=== PATIENT | female | born 1960 | race Caucasian/White ===

== ENCOUNTER → 2016-10-30 | Outpatient (CLI) | payer OTHER ==
[~2016-10-30] MED LIST: BUPR-79 PO; CYCL0.052 OPB; GABA1CAP5 PO; OMEP20CA9 PO; VENL75CA73 PO
[2016-10-30 11:56] LABS: BASO % 0.3 %; BASO ABS # 0.02 K/uL (0-0.2); COMPLETE YES; EOS % 0.1 %; HEMATOCRIT 43.6 % (37-47); IG% 0.3 %; LYMPH % 24.1 %; LYMPH ABS # 1.78 K/uL (1.2-3.4); MEAN CELL VOLUME 92.4 fL (80-100); MEAN CORPUSCULAR HEMOGLOBIN 30.9 pg (25-34); MEAN CORPUSCULAR HGB CONC 33.5 g/dl (32-36); MONO % 6.4 %; NEUT % 68.8 %; PLATELET COUNT 235 K/uL (130-400); RED BLOOD COUNT 4.72 M/uL (4.2-5.4); WHITE BLOOD COUNT 7.38 K/uL (4.8-10.8)
[2016-10-30 12:07] LABS: PARTIAL THROMBOPLASTIN RATIO 1.1; PROTHROMBIN TIME (PATIENT) 10.6 SECONDS (9.0-12.0)
[2016-10-30 12:20] LABS: POTASSIUM 4.1 mmol/L (3.5-5.1)
== END | disposition home or self-care (01) ==
LOC: C.LAB 11:31
DX: Z01.818 Encounter for other preprocedural examination (principal)

== ENCOUNTER → 2016-11-05 | Day surgery (SDC) | payer OTHER ==
[2016-10-29 14:13] VITALS: Ht 175.3 cm; Wt 95.5 kg
[~2016-11-05] VITALS: Ht 175.3 cm; Wt 95.5 kg
[~2016-11-05] MED LIST changes: +ATROPINE SULFATE 0.1 MG/ML 5ML SYR IV PRN; +CEFAZOLIN 2000 MG/60 ML D5W IV SCH; +DEXAMETHASONE SOD INJ 4 MG/ML VIAL ONE; +EpHEDrine SULFATE INJ 50 MG/ML AMP IV PRN; +EpINEphrine INJ 1MG/ML AMP 1 MG/ML AMP ONE; +FENTANYL CITRATE INJ 50 MCG/1 ML 2 ML VIAL IV PRN; +FENTANYL CITRATE INJ 50 MCG/1 ML 2 ML VIAL ONE; +GLYCOPYRROLATE INJ 0.2 MG/ML VIAL ONE; +HYDROCODONE/ACETAMOPHEN 5/325MG TAB PO PRN; +LABETALOL HCL IV 5 MG/ML 20ML IV PRN; +LABETALOL HCL IV 5 MG/ML 20ML ONE; +LACTATED RINGER'S 1000ML 1,000 ML IV SCH; +LIDOCAINE 4% MPF SOAK 5 ML = 1 DOSE TOP ONE; +LIDOCAINE HCL 2% 2 ML VIAL (20MG/ML) ONE; +LIDOCAINE/EPINEPHRINE 1% INJ 50 ML VIAL ONE; +MIDAZOLAM HCL 1 MG/ML 2ML VIAL ONE; +NEOSTIGMINE METHYLSULFATE 5 MG/5 ML SYR ONE; +ONDANSETRON INJ 2 MG/ML 2 ML VIAL IV PRN; +ONDANSETRON INJ 2 MG/ML 2 ML VIAL ONE; +OXYMETAZOLINE HCL 0.05% NA SPR 15 ML BTL PRN; +OXYMETAZOLINE HCL 0.05% NA SPR 15 ML BTL SCH; +PROPOFOL IV EMULSION 10 MG/ML 20 ML VIAL IV ONE
--- NOTE | 2016-11-05 11:35 | History & Physical Bridge - [place] ---
H&P Re-Evaluation Bridge Note: I have examined the patient, reviewed the History & Physical and in the interval since the performance of the History & Physical I have noted the following changes of clinical significance: No changes noted
--- NOTE | 2016-11-05 12:27 | [facility] Operative Report ---
Operative Report Operative Date Nov 05, 2016. Pre-Operative Diagnosis CHRONIC SINUSITIS Post-Operative Diagnosis SAME AND RIGHT NASAL ADHESIONS Procedure(s) Performed RIGHT MAXILLARY ANTROSTOMY, RIGHT ANTERIOR ETHMOIDECTOMY, RIGHT NASAL LYSIS OF ADHESIONS Surgeon VICKIE Estimated Blood Loss 5ML Findings 1. ADHESION BETWEEN RIGHT MIDDLE TURBINATE AND LATERAL NASAL WALL 2. PURULENCE WITHIN RIGHT MAXILLARY SINUS 3. MILD POLYPOID THICKENING RIGHT MAXILLARY SINUS AND ANTERIOR ETHMOID SINUS Specimens NONE I attest to the content of the Intraoperative Record and any orders documented therein. Any exceptions are noted below.
--- NOTE | 2016-11-05 12:29 | Discharge Instructions ---
Discharge Instructions Admission Reason for Admission: Chronic Sinusitis Discharge Discharge Diagnosis / Problem: SAME Discharge Goals Goal(s): Improve function Activity Recommendations Activity Limitations: as noted below 1. NO DRIVING WHILE ON [place] 2. NO NOSE BLOWING FOR 2 WEEKS 3. LIGHT ACTIVITY FOR 2 WEEKS . Current Hospital Diet Patient's current hospital diet: Discharge Diet Recommended Diet: Regular Diet Procedures Procedures Performed: RIGHT MAXILLARY ANTROSTOMY, RIGHT ANTERIOR ETHMOIDECTOMY, RIGHT NASAL LYSIS OF ADHESIONS Pending Studies Studies pending at discharge: no Medical Emergencies . Who to Call and When: Medical Emergencies: If at any time you feel your situation is an emergency, please call 911 immediately. . Non-Emergent Contact Non-Emergency issues call your: Surgeon . . "Provider Documentation" section prepared by Daniel Ren. VTE Core Measure Inpt VTE Proph given/why not?: SCD's
[2016-11-05 13:39] VITALS: TEMP 36.2
--- NOTE | 2016-11-05 13:53 | Anesthesia Progress Nt - [facility] ---
Anesthesia Post Op Note Date & Time Nov 05, 2016 at 13:53 Vital Signs Pain Intensity: 0 Vital Signs Past 12 Hours Date Time Temp Pulse Resp B/P Pulse Ox O2 Delivery O2 Flow Rate FiO2 11/05/16 13:35 58 11/05/16 13:35 58 98 11/05/16 13:33 135/93 11/05/16 13:30 57 14 11/05/16 13:30 56 14 98 11/05/16 13:28 136/86 11/05/16 13:26 36.4 58 18 129/73 99 Room Air 11/05/16 13:25 60 22 98 11/05/16 13:25 60 22 11/05/16 13:24 129/73 11/05/16 13:23 65 16 95 11/05/16 13:23 64 16 11/05/16 13:18 68 22 11/05/16 13:18 69 22 153/97 96 11/05/16 13:14 150/103 11/05/16 13:13 67 16 11/05/16 13:13 66 16 97 11/05/16 13:09 145/92 11/05/16 13:08 71 18 100 11/05/16 13:08 71 18 11/05/16 13:07 72 13 11/05/16 13:07 71 13 100 11/05/16 13:06 36.4 69 18 149/99 98 Room Air 11/05/16 13:04 149/99 11/05/16 13:02 70 21 11/05/16 13:02 70 21 100 11/05/16 12:58 134/96 11/05/16 12:57 69 13 11/05/16 12:57 69 13 100 11/05/16 12:53 142/91 11/05/16 12:52 81 15 11/05/16 12:52 75 15 87 11/05/16 12:48 144/96 11/05/16 12:47 77 10 100 11/05/16 12:47 77 10 11/05/16 12:43 144/91 11/05/16 12:42 85 11 11/05/16 12:42 85 11 100 11/05/16 12:38 36.3 90 16 169/90 99 Humidified Oxygen 8 Mask 11/05/16 12:38 149/89 11/05/16 12:37 88 13 11/05/16 12:37 88 13 100 11/05/16 11:05 36.3 77 16 129/91 96 Room Air Notes Mental Status: alert / awake / arousable, participated in evaluation Pt Amnestic to Procedure: Yes Nausea / Vomiting: adequately controlled Pain: adequately controlled Airway Patency, RR, SpO2: stable & adequate BP & HR: stable & adequate Hydration State: stable & adequate Anesthetic Complications: no major complications apparent
--- NOTE | 2016-11-05 13:54 | OPERATIVE REPORT ---
DATE OF OPERATION: 11/05/2016 PREOPERATIVE DIAGNOSIS: Right chronic sinusitis. POSTOPERATIVE DIAGNOSES: Right chronic sinusitis, right nasal adhesions. PROCEDURES: 1. Endoscopic right nasal lysis of adhesions. 2. Revision right maxillary antrostomy. 3. Revision right anterior ethmoidectomy. SURGEON: Dr. Ren. ANESTHESIA: General endotracheal. ESTIMATED BLOOD LOSS: 5 mL. FINDINGS: 1. Adhesion between the right middle turbinate and lateral nasal wall. 2. Purulence within the right maxillary sinus. 3. Polypoid mucosal thickening involving the right maxillary and anterior ethmoid sinuses. SPECIMENS: None. COMPLICATIONS: None. INDICATIONS FOR PROCEDURE: The patient is a 56-year-old female who has undergone septoplasty as well as limited endoscopic sinus surgery on the right hand side in the past from another physician who complained of right-sided nasal airway obstruction. A post-treatment CT scan sinuses revealed that she had a prior right nasal antral window procedure performed, but she had blockage of her right ostiomeatal complex along with some thickening involving the right maxillary and anterior ethmoid sinuses. She presents for the above-mentioned procedure on an outpatient elective basis. DESCRIPTION OF PROCEDURE: After informed consent had been obtained from the patient, the patient was wheeled to the operating room and placed on the operating table in the supine position. Monitors were placed. After induction of general endotracheal anesthesia the patient was prepped in the usual fashion for endoscopic sinus surgery. Lidocaine and epinephrine pledgets were placed into the right nasal cavity and pressure applied. After allowing adequate time for vasoconstriction, the pledgets were removed and a [place] elevator was used to medialize the middle turbinate. It was noted that there was a synechia between the right middle turbinate and lateral nasal wall which was blocking the patient's previous right maxillary antrostomy and ethmoid cavity. This was lysed using a freer elevator. The middle turbinate and then lateral nasal wall were injected with 1% lidocaine with 1:100,000 epinephrine. The uncinate process was then incised using a freer elevator and the uncinate process was removed using straight Jonatan-Cut forceps and power instrumentation. There was purulence within the right maxillary sinus which was suctioned. The patient's previous antrostomy was enlarged anteriorly, inferiorly, and posteriorly using backbiting forceps and power instrumentation. A revision anterior ethmoidectomy was then performed using power instrumentation. Merogel dressing was placed into the right ethmoid cavity and middle meatus. The right nasal cavity and nasopharynx and then suctioned. An orogastric tube was placed and the stomach was suctioned free of air and stomach contents. This marked the end of the case. The patient tolerated the procedure well. There were no apparent complications. The patient was extubated and transferred to recovery room in stable condition. I attest to the content of the Intraoperative Record and any orders documented therein. Any exceptions are noted below. MARILUD
[2016-11-05 14:07] VITALS: BP 123/81; PULSE 65; O2SAT 96
== END | disposition home or self-care (01) ==
LOC: X.SURG 10:53
DX: J32.9 Chronic sinusitis, unspecified (principal); J34.3 Hypertrophy of nasal turbinates; F41.9 Anxiety disorder, unspecified; M79.7 Fibromyalgia; M54.16 Radiculopathy, lumbar region; N95.1 Menopausal and female climacteric states; G95.9 Disease of spinal cord, unspecified; G62.9 Polyneuropathy, unspecified; M35.00 Sjogren syndrome, unspecified; G50.0 Trigeminal neuralgia; E55.9 Vitamin D deficiency, unspecified; Z98.890 Other specified postprocedural states

== ENCOUNTER → 2017-03-16 | Outpatient (CLI) | payer OTHER ==
[~2017-03-16] MED LIST changes: -ATROPINE SULFATE 0.1 MG/ML 5ML SYR IV PRN; -CEFAZOLIN 2000 MG/60 ML D5W IV SCH; -DEXAMETHASONE SOD INJ 4 MG/ML VIAL ONE; -EpHEDrine SULFATE INJ 50 MG/ML AMP IV PRN; -EpINEphrine INJ 1MG/ML AMP 1 MG/ML AMP ONE; -FENTANYL CITRATE INJ 50 MCG/1 ML 2 ML VIAL IV PRN; -FENTANYL CITRATE INJ 50 MCG/1 ML 2 ML VIAL ONE; -GLYCOPYRROLATE INJ 0.2 MG/ML VIAL ONE; -HYDROCODONE/ACETAMOPHEN 5/325MG TAB PO PRN; -LABETALOL HCL IV 5 MG/ML 20ML IV PRN; -LABETALOL HCL IV 5 MG/ML 20ML ONE; -LACTATED RINGER'S 1000ML 1,000 ML IV SCH; -LIDOCAINE 4% MPF SOAK 5 ML = 1 DOSE TOP ONE; -LIDOCAINE HCL 2% 2 ML VIAL (20MG/ML) ONE; -LIDOCAINE/EPINEPHRINE 1% INJ 50 ML VIAL ONE; -MIDAZOLAM HCL 1 MG/ML 2ML VIAL ONE; -NEOSTIGMINE METHYLSULFATE 5 MG/5 ML SYR ONE; -ONDANSETRON INJ 2 MG/ML 2 ML VIAL IV PRN; -ONDANSETRON INJ 2 MG/ML 2 ML VIAL ONE; -OXYMETAZOLINE HCL 0.05% NA SPR 15 ML BTL PRN; -OXYMETAZOLINE HCL 0.05% NA SPR 15 ML BTL SCH; -PROPOFOL IV EMULSION 10 MG/ML 20 ML VIAL IV ONE
== END | disposition home or self-care (01) ==
LOC: C.PAPS 08:45
PROVIDERS: ATTEND Obstetrics & Gynecology
DX: Z12.4 Encounter for screening for malignant neoplasm of cervix (principal)

== ENCOUNTER → 2017-03-21 | Outpatient (CLI) | payer OTHER ==
--- NOTE | 2017-03-22 08:01 | MAMMOGRAPHY REPORT ---
BILATERAL DIGITAL SCREENING MAMMOGRAM TOMOSYNTHESIS WITH CAD: 03/21/2017 CLINICAL HISTORY: Routine screening. Patient has no complaints. TECHNIQUE: Breast tomosynthesis in addition to standard 2D mammography was performed. Current study was also evaluated with a Computer Aided Detection (CAD) system. COMPARISON: Comparison is made to exams dated: 03/18/2016 mammogram, 03/17/2015 mammogram, 03/15/2014 mamm ogram, 03/14/2013 mammogram, 03/13/2012 mammogram, and 03/09/2011 mammogram - [facility] . BREAST COMPOSITION: There are scattered areas of fibroglandular density in both breasts. FINDINGS: There are scattered benign-appearing coarse calcifications in the right breast, and a stabl e asymmetry in the medial left breast. No suspicious mass, architectural distortion or cluster of chairez spicious microcalcifications is seen. IMPRESSION: ACR BI-RADS CATEGORY 1: NEGATIVE There is no mammographic evidence of malignancy. A 1 year screening mammogram is recommended. The pa tient will receive written notification of the results. Approximately 10% of breast cancers are not detected with mammography. A negative mammographic report should not delay biopsy if a clinically suggestive mass is present. Cinthia Li M.D. ay/:03/21/2017 16:34:44 Academic Support Director: Maritza CYR)(M), [facility] letter sent: Normal 1/2 BI-RADS Code: ACR BI-RADS Category 1: Negative
== END ==
LOC: C.MAMM 11:30
PROVIDERS: ATTEND Obstetrics & Gynecology
DX: Z12.31 Encounter for screening mammogram for malignant neoplasm of breast (principal)

== ENCOUNTER → 2017-09-23 | Outpatient (CLI) | payer OTHER ==
[2017-09-23 16:31] LABS: BASO % 0.3 %; BASO ABS # 0.02 K/uL (0-0.2); COMPLETE YES; EOS % 0.6 %; HEMATOCRIT 43.2 % (37-47); IG% 0.1 %; LYMPH % 29.9 %; LYMPH ABS # 2.35 K/uL (1.2-3.4); MEAN CELL VOLUME 92.3 fL (80-100); MEAN CORPUSCULAR HEMOGLOBIN 31.4 pg (25-34); MEAN PLATELET VOLUME 11.6 fL (7.4-10.4); MONO % 7.1 %; PLATELET COUNT 245 K/uL (130-400); RED BLOOD COUNT 4.68 M/uL (4.2-5.4); WHITE BLOOD COUNT 7.87 K/uL (4.8-10.8)
--- NOTE | 2017-09-23 17:06 | DIAGNOSTIC IMAGING REPORT ---
CHEST 2 VIEWS ROUTINE HISTORY: CHRONIC COUGH WENT TO LAB FIRST COMPARISON: Chest 1039. FINDINGS: The lungs are clear. Cardiac silhouette is normal in size. No pleural effusions. No pneumothorax. Cervical spinal fusion hardware is again noted. Old, healed left-sided rib fractures, unchanged. Cholecystectomy. IMPRESSION: No significant change compared to the prior study. No acute process. Electronically signed by: Sadiq Alva M.D. 09/23/2017 5:05 PM Dictated Date/Time: 09/23/2017 5:04 PM
== END | disposition home or self-care (01) ==
LOC: C.RAD 15:57
PROVIDERS: ATTEND Internal Medicine
DX: R05 Cough (principal); K21.9 Gastro-esophageal reflux disease without esophagitis; R10.13 Epigastric pain

== ENCOUNTER → 2017-10-27 | Outpatient (CLI) | payer OTHER ==
[2017-10-27 16:39] LABS: BASO % 0.2 %; BASO ABS # 0.02 K/uL (0-0.2); EOS % 0.5 %; EOS ABS # 0.05 K/uL (0-0.5); HEMATOCRIT 43.6 % (37-47); HEMOGLOBIN 14.5 g/dL (12.0-16.0); IG# 0.03 K/uL (0.00-0.02); LYMPH % 25.9 %; LYMPH ABS # 2.87 K/uL (1.2-3.4); MEAN CELL VOLUME 93.6 fL (80-100); MEAN CORPUSCULAR HEMOGLOBIN 31.1 pg (25-34); MEAN CORPUSCULAR HGB CONC 33.3 g/dl (32-36); MEAN PLATELET VOLUME 11.5 fL (7.4-10.4); MONO % 6.3 %; NEUT % 66.8 %; NEUT ABS # 7.43 K/uL (1.4-6.5); PLATELET COUNT 280 K/uL (130-400); RED CELL DISTRIBUTION WIDTH CV 13.4 % (11.5-14.5); RED CELL DISTRIBUTION WIDTH SD 45.5 fL (36.4-46.3)
[2017-10-27 17:01] LABS: ALBUMIN 3.6 gm/dl (3.4-5.0); ALT/SGPT 34 U/L (12-78); BLOOD UREA NITROGEN 12 mg/dl (7-18); CALCIUM 8.9 mg/dl (8.5-10.1); CARBON DIOXIDE 26 mmol/L (21-32); CREATININE 0.86 mg/dl (0.60-1.20); GLUCOSE 84 mg/dl (70-99); POTASSIUM 3.3 mmol/L (3.5-5.1); SODIUM 139 mmol/L (136-145)
[2017-10-27 17:04] LABS: ALKALINE PHOSPHATASE 117 U/L (45-117); AST/SGOT 21 U/L (15-37); TOTAL PROTEIN 7.4 gm/dl (6.4-8.2)
== END | disposition home or self-care (01) ==
LOC: C.LAB 15:51
PROVIDERS: ATTEND Internal Medicine
DX: R05 Cough (principal); R06.02 Shortness of breath

== ENCOUNTER → 2017-11-04 | Outpatient (CLI) | payer OTHER ==
[2017-11-04 16:37] LABS: BASO % 0.1 %; BASO ABS # 0.01 K/uL (0-0.2); EOS % 0.7 %; EOS ABS # 0.06 K/uL (0-0.5); HEMATOCRIT 45.1 % (37-47); IG# 0.02 K/uL (0.00-0.02); LYMPH % 30.6 %; LYMPH ABS # 2.65 K/uL (1.2-3.4); MEAN CELL VOLUME 93.6 fL (80-100); MEAN CORPUSCULAR HEMOGLOBIN 31.1 pg (25-34); MEAN CORPUSCULAR HGB CONC 33.3 g/dl (32-36); MEAN PLATELET VOLUME 12.1 fL (7.4-10.4); MONO % 8.1 %; NEUT % 60.3 %; NEUT ABS # 5.22 K/uL (1.4-6.5); PLATELET COUNT 302 K/uL (130-400); RED CELL DISTRIBUTION WIDTH CV 13.4 % (11.5-14.5); RED CELL DISTRIBUTION WIDTH SD 46.3 fL (36.4-46.3); WHITE BLOOD COUNT 8.66 K/uL (4.8-10.8)
[2017-11-04 16:43] LABS: PTT PATIENT 27.3 SECONDS (21.0-31.0)
[2017-11-04 17:06] LABS: LUTEINIZING HORMONE 5.1 IU/L
[2017-11-04 17:07] LABS: FOLLICLE STIMULAT HORMONE 12.89 IU/L
== END | disposition home or self-care (01) ==
LOC: C.LABBC 14:40
PROVIDERS: ATTEND Nurse Practitioner Adult Health
DX: N93.9 Abnormal uterine and vaginal bleeding, unspecified (principal); R05 Cough

== ENCOUNTER → 2017-11-04 | Outpatient (CLI) | payer OTHER ==
[~2017-11-04] MED LIST changes: +OPTIRAY 320 IV PRN
--- NOTE | 2017-11-04 16:21 | DIAGNOSTIC IMAGING REPORT ---
CHEST CTA for PULMONARY ARTERIES CT DOSE: 407.80 mGy.cm HISTORY: Atypical chest pain. TECHNIQUE: Multiaxial CT images of the chest were performed following the intravenous administration of contrast to evaluate the pulmonary arteries. Maximal intensity projection images were also obtained. A dose lowering technique was utilized adhering to the principles of ALARA. COMPARISON STUDY: Chest 09/23/2017. FINDINGS: Mild motion artifact. No definite filling defects within the pulmonary arteries to suggest pulmonary embolus. Normal caliber thoracic aorta with no evidence for dissection. The heart is normal in size. No pleural or pericardial effusions. No mediastinal or hilar lymphadenopathy. Cholecystectomy. Mosaic attenuation within the lungs suggests air trapping. No focal lung consolidations to suggest pneumonia. No fractures within the visualized osseous structures. IMPRESSION: 1. No definite evidence for pulmonary embolus. 2. Mosaic attenuation within the lungs suggests air trapping. This can be seen the setting of small airways disease. Electronically signed by: Sadiq Alva M.D. 11/04/2017 4:19 PM Dictated Date/Time: 11/04/2017 4:10 PM
== END | disposition home or self-care (01) ==
LOC: C.CTS 15:40
PROVIDERS: ATTEND Nurse Practitioner Adult Health
DX: R05 Cough (principal); M54.9 Dorsalgia, unspecified; Z86.718 Personal history of other venous thrombosis and embolism

== ENCOUNTER → 2017-11-09 | Outpatient (CLI) | payer OTHER ==
[~2017-11-09] MED LIST changes: -OPTIRAY 320 IV PRN
== END | disposition home or self-care (01) ==
LOC: C.PATHSPEC 18:08
PROVIDERS: ATTEND Obstetrics & Gynecology
DX: N95.0 Postmenopausal bleeding (principal); R87.618 Other abnormal cytological findings on specimens from cervix uteri

== ENCOUNTER → 2017-11-14 | Outpatient (CLI) | payer OTHER | END | disposition home or self-care (01) | LOC: C.LAB1850 09:36 | PROVIDERS: ATTEND Physician Assistant | DX: R05 Cough (principal) ==

== ENCOUNTER 2017-11-28 10:16 | Emergency (ER) | payer OTHER ==
[2017-11-28 10:22] VITALS: TEMP 36.7
[2017-11-28] MEDS ORDERED: KETOROLAC TROMETHAMINE 30 MG/ML VIAL IV STA (10:36)
[2017-11-28] MEDS ORDERED: SODIUM CHLORIDE 0.9% 1000ML 1,000 ML IV STA (10:36)
[2017-11-28] MEDS ORDERED: OPTIRAY 320 IV PRN (10:45)
[2017-11-28 11:07] LABS: BASO % 0.2 %; BASO ABS # 0.02 K/uL (0-0.2); EOS % 0.2 %; EOS ABS # 0.02 K/uL (0-0.5); HEMATOCRIT 43.6 % (37-47); HEMOGLOBIN 14.5 g/dL (12.0-16.0); IG# 0.04 K/uL (0.00-0.02); LYMPH ABS # 1.67 K/uL (1.2-3.4); MEAN CELL VOLUME 93.2 fL (80-100); MEAN CORPUSCULAR HGB CONC 33.3 g/dl (32-36); MEAN PLATELET VOLUME 10.5 fL (7.4-10.4); MONO % 4.2 %; MONO ABS # 0.44 K/uL (0.11-0.59); NEUT ABS # 8.23 K/uL (1.4-6.5); PLATELET COUNT 336 K/uL (130-400); RED CELL DISTRIBUTION WIDTH CV 13.3 % (11.5-14.5); RED CELL DISTRIBUTION WIDTH SD 45.5 fL (36.4-46.3); WHITE BLOOD COUNT 10.42 K/uL (4.8-10.8)
--- NOTE | 2017-11-28 11:08 | DIAGNOSTIC IMAGING REPORT ---
CHEST ONE VIEW PORTABLE CLINICAL HISTORY: Pain, radiating to the abdomen COMPARISON STUDY: 09/13/2017 FINDINGS: The cardiac and mediastinal contours are normal. There is no evidence of focal pulmonary consolidation. There is no evidence of failure. No pleural effusions are visualized.[ There are old left-sided rib fractures. There are postsurgical changes within the cervical spine. IMPRESSION: No active disease in the chest. Electronically signed by: Jarod Stewart M.D. 11/28/2017 11:07 AM Dictated Date/Time: 11/28/2017 11:07 AM
[2017-11-28 11:25] LABS: ALBUMIN 3.5 gm/dl (3.4-5.0); ALT/SGPT 28 U/L (12-78); BLOOD UREA NITROGEN 9 mg/dl (7-18); CALCIUM 9.1 mg/dl (8.5-10.1); CARBON DIOXIDE 26 mmol/L (21-32); GLUCOSE 92 mg/dl (70-99); LIPASE 280 U/L (73-393); POTASSIUM 3.9 mmol/L (3.5-5.1); SODIUM 141 mmol/L (136-145)
[2017-11-28 11:28] LABS: ALKALINE PHOSPHATASE 82 U/L (45-117); AST/SGOT 17 U/L (15-37); TOTAL PROTEIN 7.2 gm/dl (6.4-8.2)
[2017-11-28] MEDS ORDERED: PRED10TA PO (11:43)
--- NOTE | 2017-11-28 12:36 | DIAGNOSTIC IMAGING REPORT ---
CT ABD/PELVIS IV CONTRAST ONLY CLINICAL HISTORY: Right lower quadrant abdominal pain COMPARISON STUDY: 11/23/2011 TECHNIQUE: Following the IV administration of 93 mL of Optiray-320, CT scan of the abdomen and pelvis was performed from the lung bases to the proximal femurs. Images are reviewed in the axial, sagittal, and coronal planes. IV contrast was administered without complication. A dose lowering technique was utilized adhering to the principles of ALARA. CT DOSE: 692.83 mGy.cm FINDINGS: Lower chest: The heart is normal in size and configuration, without pericardial effusion. The lung bases and pleural spaces are clear. Liver: The contrast-enhanced liver is normal in size, contour, and attenuation. There is no intrahepatic biliary ductal dilatation. The hepatic veins and portal veins are patent. Gallbladder: Surgically absent Spleen: Normal in size and attenuation. Pancreas: Unremarkable. Adrenal glands: Unremarkable. Kidneys: There are 5 mm and 6 mm right renal hypodensities, likely representing cysts. There is a punctate nonobstructing right renal calculus. There is mild right-sided hydronephrosis and hydroureter. No ureteral or bladder calculi are visualized. Bowel: There are no transition zones indicate bowel obstruction. There is no acute diverticulitis. There are no findings to indicate acute appendicitis. Peritoneum: There is no intraperitoneal free air or abdominal ascites. Vasculature: The abdominal aorta is normal in course and caliber. Adenopathy: None. Pelvic viscera: The bladder, and pelvic viscera are unremarkable. Skeletal structures: Postsurgical changes are present within the lumbar spine there is a grade 1 spondylolisthesis of L5 and S1 IMPRESSION: 1. No evidence of bowel obstruction. No evidence of free air 2. No evidence of acute appendicitis. No evidence of acute diverticulitis 3. Punctate nonobstructing right renal calculus 4. Interval development of mild right-sided hydronephrosis and hydroureter. No ureteral or bladder calculi are visualized. The etiology of this presumed mild obstruction is not evident. This could be secondary to a recently passed calculus although other etiologies of obstruction cannot be excluded. Clinical follow-up will be necessary Electronically signed by: Jarod Stewart M.D. 11/28/2017 12:34 PM Dictated Date/Time: 11/28/2017 12:25 PM
[2017-11-28 13:41] VITALS: BP 128/85; PULSE 73; O2SAT 98
[2017-11-28] MEDS ORDERED: CYCL0.052 OPB (14:13)
[2017-11-28] MEDS ORDERED: BUPR-79 PO (14:13)
[2017-11-28] MEDS ORDERED: GABA-1220 PO (14:13)
[2017-11-28] MEDS ORDERED: VENL75CA73 PO (14:13)
[2017-11-28] MEDS ORDERED: OMEP20CA9 PO (14:13)
--- NOTE | 2017-11-28 15:00 | EMERGENCY ROOM VISIT NOTE ---
History Report prepared by Devorah: Aj Tsai Under the Supervision of: Dr. Josias Renteria D.O. First contact with patient: 10:27 Chief Complaint: ABDOMINAL PAIN Stated Complaint: ABD PAIN,VOMITING,CHILLS, SENT BY CINTHIA MURO History of Present Illness The patient is a 57 year old female who presents to the Emergency Room with complaints of dull RLQ abdominal pain that began today. She rates her pain a 2/ 10 in severity. She has a past medical history of a uterine ablation and has not had a menstrual period in 12-14 years. She denies any other chronic medical problems. About 1 week ago, the patient began to feel unwell. She started to experience nausea and generalized abdominal discomfort with intermittent vomiting and diarrhea throughout the week, but thought she may have the flu. Recently, her symptoms have progressed to back in her back and RLQ with chills and hot flashes. She called her PCP today for an appointment and was referred to the ER for further evaluation. She notes that she has had a cough for the past 4 months which was treated with antibiotics and steroids, but it has persisted throughout this time. Also, about 2-3 weeks ago, the patient experienced an episode of moderate vaginal bleeding. She went to her [facility] and received a vaginal US which was normal. They took out her estrogen ring and the large amount of bleeding. However, a couple of days ago, she did have some mild spotting. Pt denies headache, change in vision, fevers, chest pain, shortness of breath, pain with urination, and melena. Source of History: patient Onset: today Position: abdomen (RLQ) Symptom Intensity: 2/10 Quality: dull Timing: constant Associated Symptoms: + chills, + cough, + nausea, + vomiting, + back pain, + diarrhea, No fevers, No chest pain, No SOB, No melena, No urinary symptoms Note: She notes some mild vaginal spotting. Review of Systems See HPI for pertinent positives & negatives. A total of 10 systems reviewed and were otherwise negative. Past Medical & Surgical Medical Problems: (1) No Known Active Medical Problems Surgical Problems: (1) History of endometrial ablation Family History Patient reports no known family medical history. Social History Smoking Status: Never Smoker Smokeless Tobacco Use: No Alcohol Use: none Marital Status: Current/Historical Medications Scheduled Bupropion (Wellbutrin Sr), 150 MG PO BID Cyclosporine (Ophth) (Restasis), 1 DROP OPB BID Gabapentin (Neurontin), 400 MG PO BID Omeprazole (Prilosec), 20 MG PO DAILY AFTER LUNCH Prednisone (Prednisone), 15 MG PO UD Venlafaxine Hcl (Venlafaxine Extended Rel), 75 MG PO DAILY AFTERNOON Allergies Coded Allergies: Prednisone (Verified Adverse Reaction, Mild, SWELLING, 11/05/16) Physical Exam Vital Signs Date Time Temp Pulse Resp B/P (MAP) Pulse Ox O2 Delivery O2 Flow Rate FiO2 11/28/17 13:41 73 18 128/85 98 Room Air 11/28/17 12:40 72 18 127/90 98 Room Air 11/28/17 10:22 36.7 72 20 170/94 98 Room Air Physical Exam GENERAL: Sitting up in bed with a dry nonproductive cough, alert, well appearing , well nourished, no distress, non-toxic EYE EXAM: normal conjunctiva. OROPHARYNX: no exudate, no erythema, lips, buccal mucosa, and tongue normal and mucous membranes are moist NECK: supple, no nuchal rigidity, no adenopathy, non-tender LUNGS: Clear to auscultation. Normal chest wall mechanics HEART: no murmurs, S1 normal and S2 normal ABDOMEN: abdomen soft, non-tender, normo-active bowel sounds, no masses, no rebound or guarding. BACK: Back is symmetrical on inspection and there is no deformity, no midline tenderness, no CVA tenderness. SKIN: no rashes and no bruising UPPER EXTREMITIES: upper extremities are grossly normal. LOWER EXTREMITIES: No pitting edema. NEURO EXAM: Normal sensorium, cranial nerves II-XII grossly intact, normal speech, no gross weakness of arms, no gross weakness of legs. Medical Decision & Procedures ER Provider Diagnostic Interpretation: Radiology results as stated below per my review and the radiologist's interpretation: CT ABD/PELVIS IV CONTRAST ONLY CLINICAL HISTORY: Right lower quadrant abdominal pain COMPARISON STUDY: 11/23/2011 TECHNIQUE: Following the IV administration of 93 mL of Optiray-320, CT scan of the abdomen and pelvis was performed from the lung bases to the proximal femurs. Images are reviewed in the axial, sagittal, and coronal planes. IV contrast was administered without complication. A dose lowering technique was utilized adhering to the principles of ALARA. CT DOSE: 692.83 mGy.cm FINDINGS: Lower chest: The heart is normal in size and configuration, without pericardial effusion. The lung bases and pleural spaces are clear. Liver: The contrast-enhanced liver is normal in size, contour, and attenuation. There is no intrahepatic biliary ductal dilatation. The hepatic veins and portal veins are patent. Gallbladder: Surgically absent Spleen: Normal in size and attenuation. Pancreas: Unremarkable. Adrenal glands: Unremarkable. Kidneys: There are 5 mm and 6 mm right renal hypodensities, likely representing cysts. There is a punctate nonobstructing right renal calculus. There is mild right-sided hydronephrosis and hydroureter. No ureteral or bladder calculi are visualized. Bowel: There are no transition zones indicate bowel obstruction. There is no acute diverticulitis. There are no findings to indicate acute appendicitis. Peritoneum: There is no intraperitoneal free air or abdominal ascites. Vasculature: The abdominal aorta is normal in course and caliber. Adenopathy: None. Pelvic viscera: The bladder, and pelvic viscera are unremarkable. Skeletal structures: Postsurgical changes are present within the lumbar spine there is a grade 1 spondylolisthesis of L5 and S1 IMPRESSION: 1. No evidence of bowel obstruction. No evidence of free air 2. No evidence of acute appendicitis. No evidence of acute diverticulitis 3. Punctate nonobstructing right renal calculus 4. Interval development of mild right-sided hydronephrosis and hydroureter. No ureteral or bladder calculi are visualized. The etiology of this presumed mild obstruction is not evident. This could be secondary to a recently passed calculus although other etiologies of obstruction cannot be excluded. Clinical follow-up will be necessary Electronically signed by: Jarod Stewart M.D. 11/28/2017 12:34 PM Dictated Date/Time: 11/28/2017 12:25 PM CHEST ONE VIEW PORTABLE CLINICAL HISTORY: Pain, radiating to the abdomen COMPARISON STUDY: 09/13/2017 FINDINGS: The cardiac and mediastinal contours are normal. There is no evidence of focal pulmonary consolidation. There is no evidence of failure. No pleural effusions are visualized.[ There are old left-sided rib fractures. There are postsurgical changes within the cervical spine. IMPRESSION: No active disease in the chest. Electronically signed by: Jarod Stewart M.D. 11/28/2017 11:07 AM Dictated Date/Time: 11/28/2017 11:07 AM Laboratory Results 11/28/17 11:00 Red Blood Count 4.68, Mean Corpuscular Volume 93.2, Mean Corpuscular Hemoglobin 31.0, Mean Corpuscular Hemoglobin Concent 33.3, Mean Platelet Volume 10.5, Neutrophils (%) (Auto) 79.0, Lymphocytes (%) (Auto) 16.0, Monocytes (%) (Auto) 4.2, Eosinophils (%) (Auto) 0.2, Basophils (%) (Auto) 0.2, Neutrophils # (Auto) 8.23, Lymphocytes # (Auto) 1.67, Monocytes # (Auto) 0.44, Eosinophils # (Auto) 0.02, Basophils # (Auto) 0.02 11/28/17 11:00 Test 11/28/17 11:00 White Blood Count 10.42 K/uL (4.8-10.8) Red Blood Count 4.68 M/uL (4.2-5.4) Hemoglobin 14.5 g/dL (12.0-16.0) Hematocrit 43.6 % (37-47) Mean Corpuscular Volume 93.2 fL (80-100) Mean Corpuscular Hemoglobin 31.0 pg (25-34) Mean Corpuscular Hemoglobin Concent 33.3 g/dl (32-36) Platelet Count 336 K/uL (130-400) Mean Platelet Volume 10.5 fL (7.4-10.4) Neutrophils (%) (Auto) 79.0 % Lymphocytes (%) (Auto) 16.0 % Monocytes (%) (Auto) 4.2 % Eosinophils (%) (Auto) 0.2 % Basophils (%) (Auto) 0.2 % Neutrophils # (Auto) 8.23 K/uL (1.4-6.5) Lymphocytes # (Auto) 1.67 K/uL (1.2-3.4) Monocytes # (Auto) 0.44 K/uL (0.11-0.59) Eosinophils # (Auto) 0.02 K/uL (0-0.5) Basophils # (Auto) 0.02 K/uL (0-0.2) RDW Standard Deviation 45.5 fL (36.4-46.3) RDW Coefficient of Variation 13.3 % (11.5-14.5) Immature Granulocyte % (Auto) 0.4 % Immature Granulocyte # (Auto) 0.04 K/uL (0.00-0.02) Urine Color YELLOW Urine Appearance TURBID (CLEAR) Urine pH 8.5 (4.5-7.5) Urine Specific [place] 1.011 (1.000-1.030) Urine Protein NEG (NEG) Urine Glucose (UA) NEG (NEG) Urine Ketones NEG (NEG) Urine Occult Blood NEG (NEG) Urine Nitrite NEG (NEG) Urine Bilirubin NEG (NEG) Urine Urobilinogen NEG (NEG) Urine Leukocyte Esterase NEG (NEG) Urine WBC (Auto) 1-5 /hpf (0-5) Urine RBC (Auto) 0-4 /hpf (0-4) Urine Hyaline Casts (Auto) 0 /lpf (0-5) Urine Epithelial Cells (Auto) 10-20 /lpf (0-5) Urine Bacteria (Auto) NEG (NEG) Urine Test NEG (NEG) Anion Gap 9.0 mmol/L (3-11) Estimated GFR () 94.2 Estimated GFR (Non- 81.3 BUN/Creatinine Ratio 11.0 (10-20) Calcium Level 9.1 mg/dl (8.5-10.1) Total Bilirubin 0.3 mg/dl (0.2-1) Direct Bilirubin < 0.1 mg/dl (0-0.2) Aspartate Amino Transf (AST/SGOT) 17 U/L (15-37) Alanine Aminotransferase (ALT/SGPT) 28 U/L (12-78) Alkaline Phosphatase 82 U/L (45-117) Total Protein 7.2 gm/dl (6.4-8.2) Albumin 3.5 gm/dl (3.4-5.0) Lipase 280 U/L (73-393) Laboratory results per my review. Medications Administered Medications (Trade) Dose Ordered Sig/Roxanne Route Start Time Stop Time Status Last Admin Dose Admin Sodium Chloride 1,000 ml @ 999 mls/hr Q1H1M STAT IV 11/28/17 10:36 11/28/17 11:36 DC 11/28/17 11:07 999 MLS/HR Ketorolac Tromethamine (Toradol Inj) 10 mg NOW STAT IV 11/28/17 10:36 11/28/17 10:39 DC 11/28/17 11:07 10 MG ED Course ED COURSE: Vital signs were reviewed and showed situational hypertension The patients medical record was reviewed The above diagnostic studies were performed and reviewed. ED treatments and interventions as stated above. 1027: The patient was evaluated in room B11. A complete history and physical examination was performed. 1036: Ordered Toradol Inj 10 mg IV, Sodium Chloride 1000 ml @ 999 mls/hr IV 1154: The patient is beginning to feel better and is going to CT now. 1400: Upon reevaluation, the patient is resting.I discussed my findings with the patient and she understands and agrees with the treatment plan. Based on the patients age, coexisting illnesses, exam and lab findings the decision to treat as an outpatient was made. The patient remained stable while under my care. The patient appeared well at the time of discharge. Medical Decision Differential diagnoses includes but is not limited to gastritis, peptic ulcer disease, GERD, gallbladder disease, pancreatitis, small bowel obstruction, acute coronary syndrome, pericarditis, ischemic bowel, irritable bowel disease, irritable bowel syndrome, appendicitis, diverticulitis, malignancy, hernia, urinary tract infection, torsion, perforation, trauma, infectious. Patient is a 57-year-old female who presents the ER for right lower quadrant abdominal pain associated with feeling weak along with nausea and diarrhea. She also complains of intermittent vaginal bleeding which has nearly resolved. She has followed up with OB for this. CBC along with BMP, LFTs, bilirubin lipase is unremarkable. UA was negative. was negative. On reevaluation patient notes that she did have some right upper back pain which migrated and resolved into her right lower quadrant when I discussed the CT findings with her. CT did show hydronephrosis and hydroureter. UA was clean without infection. Patient was updated at bedside. I do question based on her history if this is a recently passed kidney stone. There is no other signs of obstruction. I did discuss and recommended close follow-up with her PCP and urology. Discussed with Pt concerning signs and symptoms to watch out for. Pt was instructed to follow up with their PCP and discussed with the patient their option to return to the ED at anytime for persistent or worsening symptoms. The appropriate anticipatory guidance and out-patient management, including indications for return to the emergency department, were explained at length to the patient and understood. Medication Reconcilliation Current Medication List: was personally reviewed by me Blood Pressure Screening Patient's blood pressure: Elevated blood pressure Blood pressure disposition: Elevated BP felt to be situational Impression Primary Impression: Hydronephrosis Additional Impressions: Hydroureter Abdominal pain Scribe Attestation The scribe's documentation has been prepared under my direction and personally reviewed by me in its entirety. I confirm that the note above accurately reflects all work, treatment, procedures, and medical decision making performed by me. Departure Information Dispostion Home / Self-Care Referrals Cinthia Muro .SHRUTHI (PCP) Antonio Li M.D. Forms Call Back Authorization, HOME CARE DOCUMENTATION FORM, IMPORTANT VISIT INFORMATION Patient Instructions Hydronephrosis , My [facility] Additional Instructions Please follow up with your primary care doctor with in the next 24 hours. Any worsening of your symptoms, please return to the ED immediately. This includes any fevers greater than 100.4, worsening pain, chest pain, shortness breath, persistent nausea, vomiting, unable to eat or drink, or any other concerning signs or symptoms from your standpoint. If any of your symptoms continue or worsen please return to the ER. Please follow-up with your PCP in 24 hours and urology within 1 week for the hydronephrosis/swelling of your kidney and ureter. Problem Qualifiers Primary Impression: Hydronephrosis Hydronephrosis type: unspecified Qualified Codes: N13.30 - Unspecified hydronephrosis Additional Impressions: Abdominal pain Abdominal location: unspecified location Qualified Codes: R10.9 - Unspecified abdominal pain
== END 2017-11-28 13:58 | disposition home or self-care (01) ==
LOC: C.EDB 10:18
DX: N13.30 Unspecified hydronephrosis (principal); N13.4 Hydroureter; R10.9 Unspecified abdominal pain; R19.7 Diarrhea, unspecified; Z98.890 Other specified postprocedural states

== ENCOUNTER → 2017-12-01 | Outpatient (CLI) | payer OTHER ==
[~2017-12-01] MED LIST changes: +ACET-1256 PO; +GABA-1220 PO; -GABA1CAP5 PO; +MONT1TAB5 PO; +PRED10TA PO; +RANI150T85 PO; +TAMS0.4C38 PO
[2017-12-01 16:58] LABS: BASO % 0.2 %; BASO ABS # 0.02 K/uL (0-0.2); EOS % 0.5 %; EOS ABS # 0.06 K/uL (0-0.5); HEMOGLOBIN 14.3 g/dL (12.0-16.0); IG# 0.03 K/uL (0.00-0.02); LYMPH % 29.7 %; LYMPH ABS # 3.33 K/uL (1.2-3.4); MEAN CELL VOLUME 94.2 fL (80-100); MEAN CORPUSCULAR HEMOGLOBIN 30.6 pg (25-34); MEAN CORPUSCULAR HGB CONC 32.5 g/dl (32-36); MEAN PLATELET VOLUME 11.3 fL (7.4-10.4); MONO % 7.9 %; MONO ABS # 0.89 K/uL (0.11-0.59); NEUT % 61.4 %; PLATELET COUNT 320 K/uL (130-400); RED CELL DISTRIBUTION WIDTH CV 13.3 % (11.5-14.5); RED CELL DISTRIBUTION WIDTH SD 45.7 fL (36.4-46.3); WHITE BLOOD COUNT 11.23 K/uL (4.8-10.8)
[2017-12-01 17:08] LABS: ALBUMIN 3.8 gm/dl (3.4-5.0); ALT/SGPT 58 U/L (12-78); BLOOD UREA NITROGEN 14 mg/dl (7-18); CALCIUM 9.1 mg/dl (8.5-10.1); CARBON DIOXIDE 28 mmol/L (21-32); CREATININE 0.88 mg/dl (0.60-1.20); GLUCOSE 85 mg/dl (70-99); LIPASE 223 U/L (73-393); POTASSIUM 4.1 mmol/L (3.5-5.1); SODIUM 137 mmol/L (136-145)
[2017-12-01 17:11] LABS: ALKALINE PHOSPHATASE 81 U/L (45-117); AST/SGOT 35 U/L (15-37); TOTAL PROTEIN 7.5 gm/dl (6.4-8.2)
== END | disposition home or self-care (01) ==
LOC: C.LABBC 15:08
PROVIDERS: ATTEND Nurse Practitioner Adult Health
DX: N13.30 Unspecified hydronephrosis (principal); N20.0 Calculus of kidney; R11.0 Nausea

== ENCOUNTER → 2017-12-08 | Outpatient (CLI) | payer OTHER ==
--- NOTE | 2017-12-08 15:37 | DIAGNOSTIC IMAGING REPORT ---
(CHEST) THORAX WITHOUT CLINICAL HISTORY: R05 cough COMPARISON STUDY: 11/04/2017 CT DOSE: 428.30 mGy.cm TECHNIQUE: CT of the thorax was performed from the thoracic inlet to the lung bases. Images are reviewed in the axial, sagittal, and coronal planes. IV contrast was not administered for this examination. A dose lowering technique was utilized adhering to the principles of ALARA. FINDINGS: Thyroid: Imaged portions of the thyroid gland are normal in appearance. Thoracic aorta: The thoracic aorta is normal in course and caliber, noting standard 3 vessel arch anatomy. Heart: The heart is normal in size and configuration, there is mild anterior pericardial thickening/fluid. Lungs and pleural spaces: There are no pleural effusions. There is no focal pulmonary consolidation. There is no evidence of underlying interstitial lung disease. There is a calcified right lower lobe granuloma. Mediastinum: There is no mediastinal lymphadenopathy. Emily: There is no evidence of pathologic hilar adenopathy given the limitations of a noncontrast study Axilla: There is no evidence of pathologic axillary lymphadenopathy Upper abdomen: Partially visualized upper abdominal viscera is within normal limits. Skeletal structures: There are no lytic or blastic osseous lesions. IMPRESSION: 1. No evidence of pathologic adenopathy 2. No evidence of focal pulmonary consolidation 3. No evidence of interstitial lung disease Electronically signed by: Jarod Stewart M.D. 12/08/2017 3:36 PM Dictated Date/Time: 12/08/2017 3:33 PM
[2017-12-08 15:41] LABS: INR 0.9 (0.9-1.1); PTT PATIENT 26.6 SECONDS (21.0-31.0)
== END | disposition home or self-care (01) ==
LOC: C.CTS 14:49
PROVIDERS: ATTEND Physician Assistant
DX: R05 Cough (principal); N20.0 Calculus of kidney

== ENCOUNTER → 2017-12-19 | Day surgery (SDC) | payer OTHER ==
[2017-12-08 13:41] VITALS: BMI 31.0
[~2017-12-19] VITALS: Ht 175.3 cm; Wt 96.4 kg
[~2017-12-19] MED LIST changes: +ATROPINE SULFATE 0.1 MG/ML 5ML SYR IV PRN; +CIPR-255 PO; +CIPROFLOXACIN / D5W 400 MG IV SCH; +Cysto-Conray II 17.2% 250ML BOTTLE ONE; +DEXAMETHASONE SOD INJ 4 MG/ML VIAL ONE; +EpHEDrine SULFATE 50MG/5ML SYR ONE; +EpHEDrine SULFATE INJ 50 MG/ML AMP IV PRN; +FENTANYL CITRATE INJ 50 MCG/1 ML 2 ML VIAL IV PRN; +FENTANYL CITRATE INJ 50 MCG/1 ML 2 ML VIAL ONE; -GABA-1220 PO; +LACTATED RINGER'S 1000ML 1,000 ML IV SCH; +LIDOCAINE HCL 2% 2 ML VIAL (20MG/ML) ONE; +MIDAZOLAM HCL 1 MG/ML 2ML VIAL ONE; +ONDANSETRON INJ 2 MG/ML 2 ML VIAL IV PRN; +ONDANSETRON INJ 2 MG/ML 2 ML VIAL ONE; +OXYC-57 PO; +OXYCODONE/ACETAMINOPHEN 7.5-325 TAB PO PRN; +PHEN-775 PO; -PRED10TA PO; +PROPOFOL IV EMULSION 10 MG/ML 20 ML VIAL IV ONE
[2017-12-19 10:04] VITALS: BP 147/87; PULSE 76; TEMP 36.8; O2SAT 99; Ht 175.3 cm; Wt 96.4 kg
--- NOTE | 2017-12-19 10:29 | Discharge Instructions ---
Discharge Instructions Date of Service Dec 19, 2017. Admission Reason for Admission: Renal Calculus Discharge Discharge Diagnosis / Problem: Right Hydronephrosis Discharge Goals Goal(s): Decrease discomfort, Improve function Activity Recommendations Activity Limitations: resume your previous activity Lifting Limitations: gradually increase as tolerated Exercise/Sports Limitations: gradually increase as tolerated . Instructions / Follow-Up Instructions / Follow-Up May have blood in urine. May have pelvic or flank pain. Call if any fevers or chills. Current Hospital Diet Patient's current hospital diet: Discharge Diet Recommended Diet: Regular Diet Procedures Procedures Performed: Cysto Right Ureteroscopy, Retrograde pyelogram, Stent. Pending Studies Studies pending at discharge: no Medical Emergencies . Who to Call and When: Medical Emergencies: If at any time you feel your situation is an emergency, please call 911 immediately. . Non-Emergent Contact Non-Emergency issues call your: Primary Care Provider, Urologist Call Non-Emergent contact if: you have a fever, temperature is above 101, temperature is above 101.5, your pain is not controlled, your pain is worsening . . "Provider Documentation" section prepared by Andrew Shelby. .
--- NOTE | 2017-12-19 11:47 | [facility] Operative Report ---
Operative Report Operative Date Dec 19, 2017. Pre-Operative Diagnosis Right hydroureteronephrosis Post-Operative Diagnosis Same Procedure(s) Performed Cystoscopy, Right retrograde, stent placement, balloon dilation, and ureteroscopy. Surgeon Heron Estimated Blood Loss Minimal Findings No masses or lesions Drains 6x26 Right Anesthesia Type General Complication(s) none Disposition Recovery Room / PACU Indications Right hydro with worsening flank pain. Risks and benefits discussed. Patient agreeable and consented. Description of Procedure Patient was consented and brought back to the operating room. Patient was placed under anesthesia in the supine position and moved to the dorsal lithotomy position. Patient was prepped and draped in the regular sterile fashion. A time out was completed. A 30degree Cystoscope was placed into the bladder and the entire bladder was examined. The UO's were identified. The right was cannulized with a catheter and a retrograde pyelogram was completed. A wire was then placed. A rigid ureteroscope was selected and taken into the right UO. An area of stricture was noted at the distal ureter shortly before the UVJ. A second wire was placed. Balloon dilation was completed with a 4 cm balloon to 12mmHg. The entire ureter was examined up to the proximal ureter. The scope was removed and a flexible ureteroscope was selected. It was taken up to the renal pelvis and the entire pelvis and ureter were once again assessed. No masses or lesions were observed. The scope was removed and a wire was left remaining. With the wire in place, a 6 x [26] Double J stent was placed. It was confirmed with fluoroscopy. With the stent in place, the bladder was emptied. The scope was removed. The patient was cleaned, aroused from anesthesia, and transferred to the pacu in stable condition having tolerated the procedure well with no complications. I was present and participated in all aspects of the procedure. The patient will be monitored in the PACU until transferred. I attest to the content of the Intraoperative Record and any orders documented therein. Any exceptions are noted below.
--- NOTE | 2017-12-19 12:37 | DIAGNOSTIC IMAGING REPORT ---
RETROGRADE INCLUDES KUB CLINICAL HISTORY: RT LASER LITHOTRIPSY AND STENT INSERTION COMPARISON STUDY: CT of the abdomen and pelvis November 28, 2017. Fluoroscopy time: 64.5 seconds. FINDINGS: 6 fluoroscopic images from right retrograde exam were submitted for interpretation. These images demonstrate cannulation of the right ureter. There is no right hydronephrosis. A right ureteral stent was placed. Spinal hardware is incidentally noted. IMPRESSION: Fluoroscopic images from right retrograde exam with ureteral stent insertion. Electronically signed by: Naseem Oneill M.D. 12/19/2017 12:36 PM Dictated Date/Time: 12/19/2017 12:27 PM
[2017-12-19 12:38] VITALS: BP 149/85; PULSE 71; TEMP 36.4; O2SAT 99
--- NOTE | 2017-12-19 13:09 | Anesthesiology Progress Note ---
Anesthesia Post Op Note Date & Time Dec 19, 2017 at 13:09 Vital Signs Pain Intensity: 2.0 Vital Signs Past 12 Hours Date Time Temp Pulse Resp B/P (MAP) Pulse Ox O2 Delivery O2 Flow Rate FiO2 12/19/17 12:38 36.4 71 16 149/85 99 Room Air 12/19/17 12:31 36.4 136/92 12/19/17 12:30 73 16 100 12/19/17 12:30 72 16 12/19/17 12:26 137/86 12/19/17 12:25 74 17 98 12/19/17 12:25 73 17 12/19/17 12:21 129/89 12/19/17 12:20 73 19 100 12/19/17 12:20 72 19 12/19/17 12:16 145/90 12/19/17 12:15 79 14 12/19/17 12:15 79 14 100 12/19/17 12:11 133/91 12/19/17 12:10 75 15 100 12/19/17 12:10 74 15 12/19/17 12:06 130/90 12/19/17 12:05 75 15 12/19/17 12:05 75 15 100 12/19/17 12:01 130/90 12/19/17 12:00 73 14 12/19/17 12:00 74 14 100 12/19/17 11:58 130/85 12/19/17 11:55 36 75 16 130/85 100 Oxymask 7 12/19/17 10:04 36.8 76 18 147/87 (107) 99 Room Air Notes Mental Status: alert / awake / arousable, participated in evaluation Pt Amnestic to Procedure: Yes Nausea / Vomiting: adequately controlled Pain: adequately controlled Airway Patency, RR, SpO2: stable & adequate BP & HR: stable & adequate Hydration State: stable & adequate Anesthetic Complications: no major complications apparent
== END | disposition home or self-care (01) ==
LOC: C.ACU 09:45
PROVIDERS: ATTEND Urology
DX: N13.2 Hydronephrosis with renal and ureteral calculous obstruction (principal); K21.9 Gastro-esophageal reflux disease without esophagitis; Z90.49 Acquired absence of other specified parts of digestive tract; Z98.818 Other dental procedure status; Z90.89 Acquired absence of other organs; Z98.51 Tubal ligation status; Z98.890 Other specified postprocedural states; Z79.899 Other long term (current) drug therapy; Z86.718 Personal history of other venous thrombosis and embolism; Z87.39 Personal history of other diseases of the musculoskeletal system and connective tissue; Z82.5 Family history of asthma and other chronic lower respiratory diseases; Z80.9 Family history of malignant neoplasm, unspecified; Z83.3 Family history of diabetes mellitus

== ENCOUNTER → 2017-12-27 | Day surgery (SDC) | payer OTHER ==
[~2017-12-27] VITALS: Ht 175.3 cm; Wt 96.0 kg
[2017-12-27] VITALS (7 sets, daily range): BP systolic 113–134; BP diastolic 67–84; PULSE 69–84; TEMP 36.5–36.7; O2SAT 95–99; Ht 175.3 cm; Wt 96.0 kg
[~2017-12-27] MED LIST changes: -ATROPINE SULFATE 0.1 MG/ML 5ML SYR IV PRN; -CIPROFLOXACIN / D5W 400 MG IV SCH; -Cysto-Conray II 17.2% 250ML BOTTLE ONE; -DEXAMETHASONE SOD INJ 4 MG/ML VIAL ONE; -EpHEDrine SULFATE 50MG/5ML SYR ONE; -EpHEDrine SULFATE INJ 50 MG/ML AMP IV PRN; +FENTANYL CITRATE INJ 50 MCG/1 ML 2 ML VIAL IV ONE; -FENTANYL CITRATE INJ 50 MCG/1 ML 2 ML VIAL IV PRN; -FENTANYL CITRATE INJ 50 MCG/1 ML 2 ML VIAL ONE; -LACTATED RINGER'S 1000ML 1,000 ML IV SCH; +LIDOCAINE 4% INH SOLN 4 ML BTL TOP ONE; -LIDOCAINE HCL 2% 2 ML VIAL (20MG/ML) ONE; +LIDOCAINE HCL 2% LOCAL 50ML VIAL INSTIL ONE; +LIDOCAINE VISCOUS 2% 100ML TOP ONE; -MIDAZOLAM HCL 1 MG/ML 2ML VIAL ONE; +MIDAZOLAM HCL 5 MG/ML 1 ML VIAL IV ONE; -ONDANSETRON INJ 2 MG/ML 2 ML VIAL IV PRN; -ONDANSETRON INJ 2 MG/ML 2 ML VIAL ONE; -OXYC-57 PO; -OXYCODONE/ACETAMINOPHEN 7.5-325 TAB PO PRN; -PHEN-775 PO; -PROPOFOL IV EMULSION 10 MG/ML 20 ML VIAL IV ONE
--- NOTE | 2017-12-27 07:57 | Pre Sedation Assessment ---
Pre Sedation Assessment General Date of Sedation: Dec 27, 2017. Vital Signs Past 12 Hours Date Time Temp Pulse Resp B/P (MAP) Pulse Ox O2 Delivery O2 Flow Rate FiO2 12/27/17 07:21 36.5 84 18 127/82 (97) 98 Room Air Review Cardiovascular: regular rate, rhythm, no edema, no gallop, no JVD, no murmur, normal peripheral pulses Lungs: chest non-tender, lungs clear, normal breath sounds, no respiratory distress, no accessory muscle use Pre-Sedation Airway Assessment Smoking Status: Never Smoker Hx of Sleep Apnea: No Hx of difficult intubation: No Short Thick Neck: No Thyro-mental Distance: > 3 Finger Breadths Oral Cavity: WNL Mallampati Classification: Class II ASA Classification: Class II NPO Status Date of Last Intake of Fluids: Dec 26, 2017 Time of Last Intake of Fluids: 2299 Date of Last Intake of Solids: Dec 26, 2017 Time of Last Intake of Solids: 230 Procedure Planning Contraindications for Sedation: None Current Medications Reviewed: Yes Notes The planned sedation has been discussed with the patient. Informed Consent was obtained. I have identified the patient, determined the appropriateness of sedation and have assessed the patient immediately prior to the procedure. All medicine(s) and interventions are by my order.
--- NOTE | 2017-12-27 08:40 | Bronchoscopy Procedure Note ---
Bronchoscopy Procedure Note Procedure: Bronchoscopy, conscious sedation, bronchial lavage Consent: Obtained through the patient placed into the chart Pre-procedural diagnosis: Chronic cough Post-procedural diagnosis: Chronic cough with rhinitis Start time: 818 End time: 834 Total time: 16 minutes Analgesia: 2% liquid lidocaine: Via nebulizer 4% gel lidocaine: Via right naris 2% liquid lidocaine: Via bronchoscopy Sedation: Versed IV: 2mg Fentanyl IV: 50g Procedure: The Olympus video bronchoscope was used for this procedure and passed down through the right naris Right naris/posterior naris/posterior oropharynx: Anatomically within normal limits, diffuse erythema noted Glottis: Anatomically within normal limits, erythema noted around the glottis Vocal cords: Proper abduction and abduction, anatomically within normal limits Subglottis/trachea/Mya: Anatomically within normal limits Right bronchial tree: Right mainstem bronchus: Anatomically within normal limits Right upper lobe: Anatomically within normal limits Bronchus intermedius: Anatomically within normal limits Right middle lobe: Anatomically within normal limits Right lower lobe: Anatomically within normal limits Findings: No significant findings noted Left bronchial tree: Left mainstem bronchus: Anatomically within normal limits Left upper lobe: Anatomically within normal limits Lingula: Anatomically within normal limits Left lower lobe: Anatomically within normal limits Findings: No significant findings noted Bronchial alveolar lavage: Right upper lobe anterior subsegment EBL: None Complications: None Follow-up: ASU
--- NOTE | 2017-12-27 08:41 | Post Sedation Assessment ---
Post Sedation Assessment General Date of Sedation Dec 27, 2017. Vital Signs: Vital Signs Past 12 Hours Date Time Temp Pulse Resp B/P (MAP) Pulse Ox O2 Delivery O2 Flow Rate FiO2 12/27/17 08:35 74 18 117/81 97 Mask 8 12/27/17 08:30 67 14 119/84 98 Mask 8 12/27/17 08:25 75 16 119/80 100 Mask 8 12/27/17 08:20 70 16 135/92 100 Mask 8 12/27/17 08:15 67 18 126/81 98 Mask 8 12/27/17 08:10 63 18 123/87 98 Room Air 12/27/17 07:21 36.5 84 18 127/82 (97) 98 Room Air Post Procedure Recovery Score Activity: (2) Moves 4 extremities * Respiration: (2) Deep breath/cough Circulation: (2) +/-20% PreAnes Value Consciousness: (1) Arouseable (by name) Oxygen Saturation: (1) O2 needed for >90% Post Anesthesia Score: 8 Discharge Sedation Level of Care: Fast Track Phase II Post Sedation Plan On clinical assessment, the patient appears to have tolerated the sedation without complications. Patient is recovering as anticipated. Patient will continue to be monitored by nursing and may be discharged when sedation discharge criteria are met per below protocol. Upon Completions of procedure and additional 15 minutes continue every 5 minute vital signs and the P.A.R. score; then discharge to a Phase I or Fast Track to Phase II per the following guidelines: * Discharge Patient to appropriate Phase II area if PAR is 8 or greater or return to pre- procedure baseline. The post - procedure orders will be as directed. * If PAR score is less than 8 or not return to pre-procedure baseline then patient will follow Phase I monitoring till PAR is reached for Phase II. The Phase I may be done in procedure room or may call to secure a Phase I area. * If naloxone or flumazenil are used for reversal, hold in Phase I for an additional 60 -120 minutes before discharge to Phase II. Please call the Sedation Physician to re-evaluate and complete post-note for discharge to Phase II area. Do NOT discharge from procedure sedation or Phase 1 until post- sedation evaluation note is complete by procedure /sedation MD Sedation Discharge Instructions to be given to the patient at discharge to home.
--- NOTE | 2017-12-27 08:43 | Discharge Instructions ---
Discharge Instructions Date of Service Dec 27, 2017. Admission Reason for Admission: Chronic Cough Discharge Discharge Diagnosis / Problem: Chronic cough with associated chronic rhinitis Discharge Goals Goal(s): Diagnostic testing Activity Recommendations Activity Limitations: resume your previous activity Driving or Machine Use: resume 1 day after discharge . Instructions / Follow-Up Instructions / Follow-Up Follow-up with provider Laurie Queen or Dr. Cardona at the [facility] pulmonary division Current Hospital Diet Patient's current hospital diet: Discharge Diet Recommended Diet: Regular Diet Procedures Procedures Performed: Bronchoscopy, conscious sedation, bronchial lavage of the right upper lobe Pending Studies Studies pending at discharge: no Medical Emergencies . Who to Call and When: Medical Emergencies: If at any time you feel your situation is an emergency, please call 911 immediately. . Non-Emergent Contact Non-Emergency issues call your: Financial Services Intern Call Non-Emergent contact if: temperature is above 101 . . "Provider Documentation" section prepared by Ambrocio Cardona. .
== END | disposition home or self-care (01) ==
LOC: C.ACU 06:58
PROVIDERS: ATTEND Internal Medicine Critical Care Medicine
DX: R05 Cough (principal); J31.0 Chronic rhinitis; F41.9 Anxiety disorder, unspecified; Z87.09 Personal history of other diseases of the respiratory system; Z87.39 Personal history of other diseases of the musculoskeletal system and connective tissue; Z90.49 Acquired absence of other specified parts of digestive tract; Z90.89 Acquired absence of other organs; Z98.51 Tubal ligation status; Z82.5 Family history of asthma and other chronic lower respiratory diseases; Z84.89 Family history of other specified conditions; Z83.3 Family history of diabetes mellitus

== ENCOUNTER → 2017-12-27 | Outpatient (CLI) | payer OTHER ==
[~2017-12-27] MED LIST changes: -FENTANYL CITRATE INJ 50 MCG/1 ML 2 ML VIAL IV ONE; -LIDOCAINE 4% INH SOLN 4 ML BTL TOP ONE; -LIDOCAINE HCL 2% LOCAL 50ML VIAL INSTIL ONE; -LIDOCAINE VISCOUS 2% 100ML TOP ONE; -MIDAZOLAM HCL 5 MG/ML 1 ML VIAL IV ONE
== END | disposition home or self-care (01) ==
LOC: C.LABSPEC 17:28
PROVIDERS: ATTEND Urology
DX: N13.4 Hydroureter (principal)

== ENCOUNTER → 2018-01-02 | Outpatient (CLI) | payer OTHER ==
[2018-01-02 16:55] LABS: HEMATOCRIT 44.3 % (37-47); HEMOGLOBIN 14.3 g/dL (12.0-16.0); MEAN CELL VOLUME 93.9 fL (80-100); MEAN CORPUSCULAR HEMOGLOBIN 30.3 pg (25-34); MEAN CORPUSCULAR HGB CONC 32.3 g/dl (32-36); MEAN PLATELET VOLUME 11.5 fL (7.4-10.4); PLATELET COUNT 299 K/uL (130-400); RED CELL DISTRIBUTION WIDTH CV 13.1 % (11.5-14.5); RED CELL DISTRIBUTION WIDTH SD 45.2 fL (36.4-46.3); WHITE BLOOD COUNT 9.28 K/uL (4.8-10.8)
[2018-01-02 17:12] LABS: BLOOD UREA NITROGEN 11 mg/dl (7-18); CALCIUM 9.4 mg/dl (8.5-10.1); CARBON DIOXIDE 22 mmol/L (21-32); CREATININE 1.06 mg/dl (0.60-1.20); GLUCOSE 122 mg/dl (70-99); POTASSIUM 3.7 mmol/L (3.5-5.1); SODIUM 139 mmol/L (136-145)
== END | disposition home or self-care (01) ==
LOC: C.LABBC 14:18
PROVIDERS: ATTEND Urology
DX: N13.4 Hydroureter (principal)

== ENCOUNTER → 2018-01-11 | Outpatient (CLI) | payer OTHER ==
--- NOTE | 2018-01-11 14:55 | DIAGNOSTIC IMAGING REPORT ---
RENAL ULTRASOUND HISTORY: MICROSCOPIC HEMATURIA COMPARISON: Abdomen and pelvis CT 11/28/2017. FINDINGS: Right kidney: 12.7 cm. Stable mild right hydroureteronephrosis. 6 mm upper pole cyst, unchanged. Normal corticomedullary differentiation and cortical thickness. Left kidney: 11.6 cm. No hydronephrosis. Normal corticomedullary differentiation and cortical thickness. 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 Bladder: No bladder wall thickening. The bilateral ureteral jets were identified. IMPRESSION: 1. No change compared to the prior abdomen and pelvis CT. 2. Stable mild right hydronephrosis. Electronically signed by: Sadiq Alva M.D. 01/11/2018 2:54 PM Dictated Date/Time: 01/11/2018 2:45 PM
== END | disposition home or self-care (01) ==
LOC: C.ULTR 14:10
PROVIDERS: ATTEND Urology
DX: R31.9 Hematuria, unspecified (principal); N13.30 Unspecified hydronephrosis

== ENCOUNTER → 2018-01-16 | Outpatient (CLI) | payer OTHER ==
--- NOTE | 2018-01-16 13:51 | DIAGNOSTIC IMAGING REPORT ---
L VENOUS DOPP LOWER EXT UNILAT HISTORY: 57 years-old Female R06.02 SOB (shortness of breath) on exertionLeft lower extremity acute shortness of breath COMPARISON: None available TECHNIQUE: Multiple real-time sonographic images of the left lower extremity deep venous structures were obtained assessing grayscale appearance, color and spectral flow FINDINGS: There is normal compressibility, flow, phasicity and augmentation of the left lower extremity deep venous structures. IMPRESSION: No sonographic evidence of deep venous thrombosis. The above report was generated using voice recognition software. It may contain grammatical, syntax or spelling errors. Electronically signed by: Maciej Farris M.D. 01/16/2018 1:49 PM Dictated Date/Time: 01/16/2018 1:48 PM
== END | disposition home or self-care (01) ==
LOC: C.ULTRBC 13:21
PROVIDERS: ATTEND Nurse Practitioner Adult Health
DX: R06.02 Shortness of breath (principal); M79.605 Pain in left leg

== ENCOUNTER → 2018-02-15 | Outpatient (CLI) | payer OTHER | END | disposition home or self-care (01) | LOC: C.LABBC 12:40 | PROVIDERS: ATTEND Obstetrics & Gynecology | DX: N95.1 Menopausal and female climacteric states (principal) ==

== ENCOUNTER 2023-02-09 17:31 | Observation (INO) ==
[2023-02-09] MEDS ORDERED: ONDANSETRON INJ 2 MG/ML 2 ML VIAL IV STA (17:41)
--- NOTE | 2023-02-09 17:44 | ED Triage Note ---
Date of Service February 09, 2023 History of Present Illness This patient was briefly evaluated while in triage. An abbreviated physical exam was performed. This patient is a 63-year-old Female who presents to the ED for evaluation of []. Physical Exam Initial orders for labs and / or imaging were placed and patient was placed in the waiting area until a bed is available. Please see further documentation for the full ED course.
[2023-02-09 18:43] LABS: Basophils # (auto) 0.03 K/uL (0-0.2); Basophils % (auto) 0.3 %; Eosinophils # (auto) 0.01 K/uL (0-0.50); Eosinophils % (auto) 0.1 %; Hematocrit (blood only) 48.9 % (37.0-47.0); Immature Granulocytes # (auto) 0.03 K/uL (0.01-0.20); Immature Granulocytes % (auto) 0.3 %; Lymphocytes # (auto) 1.62 K/uL (1.2-3.4); Lymphocytes % (auto) 14.6 %; Mean Corpuscular Hemoglobin 29.7 pg (25.0-34.0); Mean Corpuscular Hgb Conc 32.7 g/dL (32.0-36.0); Mean Corpuscular Volume 90.7 fL (80.0-100.0); Mean Platelet Volume 11.7 fL (9.4-12.4); Monocytes # (auto) 0.77 K/uL (0.11-0.59); Monocytes % (auto) 6.9 %; Neutrophils # (auto) 8.66 K/uL (1.40-6.50); Neutrophils % (auto) 77.8 %; Platelet Count 297 K/uL (130-400); RDW Coefficient of Variation 13.1 % (11.5-14.5); RDW Standard Deviation 43.8 fL (36.4-46.3); Red Blood Count 5.39 M/uL (4.20-5.40); White Blood Count 11.12 K/ul (4.8-10.8)
[2023-02-09 18:46] LABS: Alanine Aminotransferase 23 U/L (7-52); Albumin Globulin Ratio 1.3 (0.9-2); Albumin Level 4.3 gm/dl (3.4-5.0); Alkaline Phosphatase 98 U/L (34-104); Anion Gap 5 (3-11); Aspartate Aminotransferase 20 U/L (13-39); BUN Creatinine Ratio 13.2 (10-20); Bilirubin,Total 0.7 mg/dl (0.2-1.0); Blood Urea Nitrogen 9 mg/dl (6-23); Calcium 9.4 mg/dl (8.6-10.3); Carbon Dioxide 28 mmol/L (21-32); Chloride 105 mmol/L (98-107); Est GFR (African American) 107.1 ml/min; Est GFR (Non-African American) 92.4 ml/min; Globulin 3.4 gm/dl (2.5-4.0); Glucose 102 mg/dl (70-99(Fasting)); Lipase 21 U/L (11-82); Potassium 4.3 mmol/L (3.5-5.1); Sodium 138 mmol/L (136-145); Total Protein 7.7 gm/dl (6.0-8.3)
[2023-02-09] MEDS ORDERED: OPTIRAY 320 100ml IV ONE (19:52)
--- NOTE | 2023-02-09 20:12 | Emergency Department Note ---
ED Provider Note History of Present Illness Chief Complaint: Vomiting Stated Complaint: REF BY DOC,VOMIT BILE,HEADACHE,DIZZINESS,BACK PAIN Time Seen by Provider: 02/09/23 19:38 This patient is a 63-year-old female who presents to the emergency department for evaluation of nausea and vomiting. She states that she woke up feeling nauseous around 3 AM. Few hours later, she started vomiting and has not been able to stop vomiting since then. She states that she felt bloated and tried milk of magnesia without any relief. She did have a normal bowel movement after this. She states that she has a full feeling in her upper abdomen. She has some headache and dizziness. This is the fourth time she has had the symptoms in the past month, and she states that she does have some baseline nausea every day. She is seeing her PCP and scheduled for some imaging. She does report a history of vertigo but states this does not feel the same. Home Medications Medication Instructions Recorded Confirmed Type CPAP Machine #1 ea 06/08/22 01/25/23 Rx lisinopril 10 mg tablet 10 mg PO DAILY #90 tabs 08/11/22 02/09/23 Rx CPAP Supplies #4 ea 10/20/22 01/25/23 Rx pediatric multivitamin no.209 1 tab PO DAILY 11/15/22 02/09/23 History (Children's Multivitamin Gummy chewable tablet) cyclosporine 0.05 % eye drops in a 1 drp ophthalmic (eye) Q12H 01/25/23 02/09/23 History dropperette (Restasis) metformin 500 mg tablet 500 mg PO BID 01/25/23 02/09/23 History ondansetron HCl 8 mg tablet 8 mg PO Q8H PRN nausea and 01/25/23 02/09/23 Rx vomiting #30 tabs nystatin 100,000 unit/mL oral 1 ml PO DAILY #60 mL 01/27/23 02/09/23 Rx suspension pantoprazole 40 mg tablet,delayed 40 mg PO BID 6 weeks #84 tabs 02/11/23 Rx release sucralfate 1 gram tablet 1 g PO QID 10 days #40 tabs 02/11/23 Rx Allergies Allergy/AdvReac Type Severity Reaction Status Date / Time phentermine AdvReac Elevated Verified 02/10/23 00:00 blood pressure Past Med/Surg History Medical History Anxiety Chronic diarrhea COVID-19 home test on 09/18/21 positive; c/o cough, dizziness, congestion, joint pain Dizziness Eustachian tube dysfunction Fecal retention GERD (gastroesophageal reflux disease) HX OF/RE-OCCURS/NOT A CURRENT PROBLEM Head and face pain History of kidney stones HTN (hypertension) Hydronephrosis Hydroureter Impacted cerumen, right ear Kidney stone SMALL STONE CURRENLTY/CAUSING NO PROBLEMS Migraines Otalgia, right ear Positional vertigo Sensation of chest pressure Serous otitis media of right ear with rupture of tympanic membrane Surgical History History of bilateral tubal ligation History of cataract surgery December 2022 History of cholecystectomy History of colonoscopy History of cystoscopy History of endoscopic sinus surgery & Right Myringotomy and Tube placement - 09/11/[address] Galloway History of esophagogastroduodenoscopy (EGD) History of fusion of cervical spine normal ROM History of lumbar spinal fusion x2 History of placement of ear tubes Right Myringotomy and tube - 09/11/[address] Galloway Repeated by Dr. Galloway on 10/29/21 History of rhinoplasty History of tonsillectomy History of tooth extraction History of urologic surgery FOR KIDNEY STONES, STENT History of wisdom tooth extraction Status post correction of deviated nasal septum x2 Family History Son Family history of reaction to anesthesia makes oldest son "goofy" Aunt Family history of colon cancer Father Asthma Other Cancer Diabetes Patient's father is Peritonitis Thyroid disorder Social History Smoking Status: Never smoker Second Hand Exposure: No; Do You Dip or Chew Tobacco: No; Hx Alcohol Use: No Hx Substance Use: No Preferred Language: Macedonian Communication Ability: Effective Ventilation Worker Required: No Beliefs That Will Affect Care: None marital status: Current Living Situation: Spouse current occupational status: employed current occupation: self employed Feels Safe at Home: Yes caffeine: Yes Dental Care, Regularly: Yes Seatbelt Use: always Sunscreen Use: Yes Assistive Devices: CPAP and Glasses Physical Exam Vital Signs Vital Signs - 24 hr 02/09/23 17:40 02/09/23 20:06 02/09/23 20:09 Temperature 36.8 C Temperature Source Temporal Artery Scan Pulse Rate 81 75 Pulse Rate [Apical] 76 Respiratory Rate 18 20 Respiratory Effort / Characteristics Non-Labored Spontaneous Respiratory Depth Normal Normal Blood Pressure 175/101 H Blood Pressure [Left Arm] 184/99 H Blood Pressure Mean 125 Blood Pressure Mean [Left Arm] 127 Blood Pressure Position Sitting Pulse Oximetry 96 96 Oxygen Delivery Method Room Air Room Air Sepsis Recent Fever Within 48 Hours No Sepsis New/Unexplained Change in Mental Status No Sepsis Action Taken by Nursing No Action Required 02/09/23 22:11 Temperature Temperature Source Pulse Rate Pulse Rate [Apical] 71 Respiratory Rate 19 Respiratory Effort / Characteristics Respiratory Depth Blood Pressure Blood Pressure [Left Arm] 178/102 H Blood Pressure Mean Blood Pressure Mean [Left Arm] 127 Blood Pressure Position Pulse Oximetry 96 Oxygen Delivery Method Room Air Sepsis Recent Fever Within 48 Hours Sepsis New/Unexplained Change in Mental Status Sepsis Action Taken by Nursing VITALS: Vitals are noted on the nurse's note and reviewed by myself. GENERAL: This is a 63-year-old female, vomiting into an emesis bag. SKIN: The skin was without rashes. EARS: External auditory canals clear, tympanic membranes pearly kent without erythema or effusion bilaterally. EYES: Pupils equal round and reactive to light and accommodation. No scleral icterus. MOUTH: Mucous membranes moist. Tonsils are not enlarged. Pharynx without erythema or exudate. NECK: Supple without nuchal rigidity. No lymphadenopathy. LUNGS: Clear to auscultation bilaterally without wheezes, rales or rhonchi. ABDOMEN: Positive bowel sounds x 4. Soft, mild epigastric tenderness to palpation. NEURO: Patient was alert and oriented to person place and time. Course Administered Medications Discontinued Medications Diphenhydramine HCl (Diphenhydramine 50 Mg/Ml Vial) 25 mg IV NOW STA Stop: 02/09/23 21:04 Last Admin: 02/09/23 21:09 Dose: 25 mg Documented By: Famotidine (Famotidine 20 Mg Tab) [facility] [place] Stop: 03/12/23 08:59 Last Admin: 02/11/23 08:08 Dose: 20 mg Documented By: Admin: 02/10/23 09:22 Dose: 20 mg Documented By: ALEJANDRINA Sodium Chloride (Nss 1000ml) 1,000 mls @ 999 mls/hr IV .Q1H1M ONE Stop: 02/09/23 22:03 Last Infusion: 02/09/23 22:15 Dose: 0 mls/hr Documented By: Admin: 02/09/23 21:12 Dose: 999 mls/hr Documented By: Promethazine HCl (Phenergan) 12.5 mg in 50.5 mls @ 202 mls/hr IV NOW STA Stop: 02/09/23 22:40 Last Infusion: 02/09/23 22:54 Dose: 0 mls/hr Documented By: Admin: 02/09/23 22:35 Dose: 202 mls/hr Documented By: Acetaminophen (Ofirmev) 1,000 mg in 100 mls @ 400 mls/hr IV Q8H PRN PRN Reason: Pain or fever Stop: 02/13/23 04:12 Last Infusion: 02/11/23 00:51 Dose: 0 mls/hr Documented By: Admin: 02/11/23 00:17 Dose: 400 mls/hr Documented By: BART Sodium Chloride (Nss 1000ml) 1,000 mls @ 100 mls/hr IV .Q10H [facility] Stop: 03/12/23 12:14 Last Admin: 02/11/23 08:10 Dose: 100 mls/hr Documented By: Infusion: 02/11/23 08:10 Dose: 100 mls/hr Documented By: Admin: 02/10/23 22:40 Dose: 100 mls/hr Documented By: Infusion: 02/10/23 22:40 Dose: 100 mls/hr Documented By: Admin: 02/10/23 12:53 Dose: 100 mls/hr Documented By: JANA Ioversol (Optiray 320 100ml) 87 ml IV ONCE ONE Stop: 02/09/23 19:53 Last Admin: 02/09/23 19:52 Dose: 87 ml Documented By: RAFIA Ketorolac Tromethamine (Ketorolac Tromethamine 15 Mg/Ml Vial) 15 mg IV NOW STA Stop: 02/09/23 21:04 Last Admin: 02/09/23 21:14 Dose: 15 mg Documented By: Lidocaine HCl (Lidocaine 2% 2 Ml Vial/Amp(20mg/Ml)) Confirm Administered Dose 4 ml INFIL [email or web address] [facility] Stop: 02/11/23 10:57 Last Admin: 02/11/23 12:46 Dose: Not Given Documented By: BRIANNA Lisinopril (Lisinopril 10 Mg Tab) 10 mg PO DAILY [facility] Stop: 03/12/23 08:59 Last Admin: 02/11/23 08:08 Dose: 10 mg Documented By: Admin: 02/10/23 09:22 Dose: 10 mg Documented By: ALEJANDRINA Metoclopramide HCl (Metoclopramide Hcl Inj 5 Mg/Ml 2 Ml Vial) 5 mg IV ONE ONE Stop: 02/09/23 21:04 Last Admin: 02/09/23 21:11 Dose: 5 mg Documented By: Midazolam HCl (Midazolam Hcl 1 Mg/Ml 2ml Vial) Confirm Administered Dose 2 mg .ROUTE .[employer] ONE Stop: 02/11/23 10:57 Last Admin: 02/11/23 12:46 Dose: Not Given Documented By: BRIANNA Miscellaneous (Restasis~Order Awaiting Action) 1 each N/A QS [facility] Stop: 03/12/23 07:59 Last Admin: 02/10/23 19:35 Dose: Not Given Documented By: BART Ondansetron HCl (Ondansetron Inj 2 Mg/Ml 2 Ml Vial) 4 mg IV NOW [facility] Stop: 02/09/23 17:42 Last Admin: 02/09/23 17:58 Dose: 4 mg Documented By: ARGENIS Ondansetron HCl (Ondansetron Inj 2 Mg/Ml 2 Ml Vial) 4 mg IV NOW STA Stop: 02/10/23 03:05 Last Admin: 02/10/23 03:09 Dose: 4 mg Documented By: SYED Ondansetron HCl (Ondansetron Inj 2 Mg/Ml 2 Ml Vial) 4 mg IV Q6H PRN PRN Reason: Nausea And Vomiting Stop: 03/12/23 04:12 Last Admin: 02/11/23 03:53 Dose: 4 mg Documented By: Admin: 02/10/23 19:43 Dose: 4 mg Documented By: Admin: 02/10/23 06:25 Dose: 4 mg Documented By: ANAYELI Ondansetron HCl (Ondansetron Inj 2 Mg/Ml 2 Ml Vial) Confirm Administered Dose 4 mg .ROUTE .[employer] ONE Stop: 02/11/23 10:58 Last Admin: 02/11/23 12:45 Dose: Not Given Documented By: BRIANNA Pantoprazole Sodium (Pantoprazole 40 Mg Tab) 40 mg PO BID [facility] Stop: 03/13/23 11:59 Last Admin: 02/11/23 12:45 Dose: 40 mg Documented By: BRIANNA Propofol (Propofol Iv Emulsion 10 Mg/Ml 20 Ml Vial) Confirm Administered Dose 400 mg IV .STK-MED ONE Stop: 02/11/23 10:58 Last Admin: 02/11/23 12:45 Dose: Not Given Documented By: BRIANNA Simethicone (Simethicone 80 Mg Chew) 80 mg PO NOW ONE Stop: 02/10/23 23:27 Last Admin: 02/11/23 00:15 Dose: 80 mg Documented By: BART Sucralfate (Sucralfate 1 Gm Tab) 1 gm PO QID [facility] Stop: 03/13/23 13:04 Last Admin: 02/11/23 14:06 Dose: 1 gm Documented By: BRIANNA Medical Decision Making Differential Diagnosis Appendicitis, ovarian cyst, ovarian torsion, ectopic , TOA, PID, infections, diverticulitis, UTI, obstruction, mesenteric ischemia, aortic pathology, inflammatory bowel disease, renal colic, PUD, pancreatitis, biliary pathology, hernia, volvulus, constipation, as well as other pathologies. Home Medications was personally reviewed by me Laboratory Data Attestation: I reviewed the patient's lab results. 02/09/23 18:00 02/09/23 18:00 Lab Results 02/09/23 02/09/23 02/09/23 Range/Units 18:00 18:00 20:03 WBC 11.12 H (4.8-10.8) K/ul RBC 5.39 (4.20-5.40) M/uL Hgb 16.0 (12.0-16.0) g/dl Hct 48.9 H (37.0-47.0) % MCV 90.7 (80.0-100.0) fL MCH 29.7 (25.0-34.0) pg MCHC 32.7 (32.0-36.0) g/dL RDW Std Deviation 43.8 (36.4-46.3) fL RDW Coeff of Shane 13.1 (11.5-14.5) % Plt Count 297 (130-400) K/uL MPV 11.7 (9.4-12.4) fL Immature Gran % (Auto) 0.3 % Neut % (Auto) 77.8 % Lymph % (Auto) 14.6 % [place] % (Auto) 6.9 % Eos % (Auto) 0.1 % Baso % (Auto) 0.3 % Neut # (Auto) 8.66 H (1.40-6.50) K/uL Lymph # (Auto) 1.62 (1.2-3.4) K/uL [place] # (Auto) 0.77 H (0.11-0.59) K/uL Eos # (Auto) 0.01 (0-0.50) K/uL Baso # (Auto) 0.03 (0-0.2) K/uL Immature Gran # (Auto) 0.03 (0.01-0.20) K/uL Sodium 138 (136-145) mmol/L Potassium 4.3 (3.5-5.1) mmol/L Chloride 105 (98-107) mmol/L Carbon Dioxide 28 (21-32) mmol/L Anion Gap 5 (3-11) BUN 9 (6-23) mg/dl Creatinine 0.68 (0.6-1.2) mg/dl Est Cr Clr Drug Dosing Not Reportable Est GFR ( Amer) 107.1 ml/min Est GFR (Non-Af Amer) 92.4 ml/min BUN/Creatinine Ratio 13.2 (10-20) Glucose 102 H (70-99(Fasting)) mg/dl Calcium 9.4 (8.6-10.3) mg/dl Total Bilirubin 0.7 (0.2-1.0) mg/dl AST 20 (13-39) U/L ALT 23 (7-52) U/L Alkaline Phosphatase 98 (34-104) U/L Total Protein 7.7 (6.0-8.3) gm/dl Albumin 4.3 (3.4-5.0) gm/dl Globulin 3.4 (2.5-4.0) gm/dl Albumin/Globulin Ratio 1.3 (0.9-2) Lipase 21 (11-82) U/L Urine Color Dark Yellow Urine Appearance Clear (Clear) Urine pH 6.5 (4.5-7.5) Ur Specific [place] 1.029 (1.000-1.030) Urine Protein Trace H (Negative) Urine Glucose (UA) Negative (Negative) Urine Ketones 1+ H (Negative) Urine Blood Negative (Negative) Urine Nitrite Negative (Negative) Urine Bilirubin Negative (Negative) Urine Urobilinogen Negative (Negative) Ur Leukocyte Esterase Negative (Negative) Urine WBC (Auto) 1-5 (0-5) /hpf Urine RBC (Auto) 0-4 (0-4) /hpf U Hyaline Cast (Auto) 1-5 (0-5) /lpf U Epithel Cells (Auto) 20-30 H (0-5) /lpf Urine Bacteria (Auto) Negative (Negative) SARS-CoV-2, RNA, NAAT (NEGATIVE) 02/09/23 Range/Units 23:47 WBC (4.8-10.8) K/ul RBC (4.20-5.40) M/uL Hgb (12.0-16.0) g/dl Hct (37.0-47.0) % MCV (80.0-100.0) fL MCH (25.0-34.0) pg MCHC (32.0-36.0) g/dL RDW Std Deviation (36.4-46.3) fL RDW Coeff of Shane (11.5-14.5) % Plt Count (130-400) K/uL MPV (9.4-12.4) fL Immature Gran % (Auto) % Neut % (Auto) % Lymph % (Auto) % [place] % (Auto) % Eos % (Auto) % Baso % (Auto) % Neut # (Auto) (1.40-6.50) K/uL Lymph # (Auto) (1.2-3.4) K/uL [place] # (Auto) (0.11-0.59) K/uL Eos # (Auto) (0-0.50) K/uL Baso # (Auto) (0-0.2) K/uL Immature Gran # (Auto) (0.01-0.20) K/uL Sodium (136-145) mmol/L Potassium (3.5-5.1) mmol/L Chloride (98-107) mmol/L Carbon Dioxide (21-32) mmol/L Anion Gap (3-11) BUN (6-23) mg/dl Creatinine (0.6-1.2) mg/dl Est Cr Clr Drug Dosing Est GFR ( Amer) ml/min Est GFR (Non-Af Amer) ml/min BUN/Creatinine Ratio (10-20) Glucose (70-99(Fasting)) mg/dl Calcium (8.6-10.3) mg/dl Total Bilirubin (0.2-1.0) mg/dl AST (13-39) U/L ALT (7-52) U/L Alkaline Phosphatase (34-104) U/L Total Protein (6.0-8.3) gm/dl Albumin (3.4-5.0) gm/dl Globulin (2.5-4.0) gm/dl Albumin/Globulin Ratio (0.9-2) Lipase (11-82) U/L Urine Color Urine Appearance (Clear) Urine pH (4.5-7.5) Ur Specific [place] (1.000-1.030) Urine Protein (Negative) Urine Glucose (UA) (Negative) Urine Ketones (Negative) Urine Blood (Negative) Urine Nitrite (Negative) Urine Bilirubin (Negative) Urine Urobilinogen (Negative) Ur Leukocyte Esterase (Negative) Urine WBC (Auto) (0-5) /hpf Urine RBC (Auto) (0-4) /hpf U Hyaline Cast (Auto) (0-5) /lpf U Epithel Cells (Auto) (0-5) /lpf Urine Bacteria (Auto) (Negative) SARS-CoV-2, RNA, NAAT NEGATIVE (NEGATIVE) Imaging Data Attestation: I personally reviewed and interpreted this imaging study as follows: Radiologist's Impression: Abdomen/Pelvis CT 02/09/23 17:42 Exam(s): CT ABDOMEN + PELVIS With Contrast IV Amt: 87ml optiray 320 EXAM: CT Abdomen and Pelvis With Intravenous Contrast CLINICAL HISTORY: Reason for exam: Upper and/back pain, vomiting. TECHNIQUE: Axial computed tomography images of the abdomen and pelvis with intravenous contrast. CTDI is 20.76 mGy and DLP is 1029.83 mGy-cm. Automated exposure control was utilized for the study. A dose lowering technique was utilized adhering to the principles of ALARA. CONTRAST: Patient received 87ml optiray 320 of IV contrast COMPARISON: No relevant prior studies available. FINDINGS: Lung bases: Unremarkable. No mass. No consolidation. ABDOMEN: Liver: Hepatic steatosis. Gallbladder and bile ducts: Cholecystectomy. No ductal dilation. Pancreas: Unremarkable. No mass. No ductal dilation. Spleen: Unremarkable. No splenomegaly. Adrenals: Unremarkable. No mass. Kidneys and ureters: Unremarkable. No hydronephrosis or delayed nephrogram. Stomach and bowel: Diverticulosis, without acute diverticulitis. No small bowel obstruction. No free intraperitoneal air. PELVIS: Appendix: No secondary signs of acute appendicitis. Bladder: Decompressed urinary bladder. Reproductive: Unremarkable as visualized. ABDOMEN and PELVIS: Intraperitoneal space: Unremarkable. No free air. No significant fluid collection. Bones/joints: Degenerative changes of the spine. Posterior fusion L4- L5 with L5 and L5 laminectomies. No acute fracture. No dislocation. Soft tissues: Unremarkable. Vasculature: Unremarkable. No abdominal aortic aneurysm. Lymph nodes: Unremarkable. No enlarged lymph nodes. IMPRESSION: 1. Diverticulosis, without acute diverticulitis. No small bowel obstruction. No free intraperitoneal air. 2. Hepatic steatosis. 3. Cholecystectomy. Electronically signed by: Niall Russo MD 02/09/23 20:[address] 02/09/23 21:02 Exam(s): CT HEAD Without Contrast EXAM: CT Head Without Intravenous Contrast CLINICAL HISTORY: Reason for exam: Headaches, vomiting. TECHNIQUE: Axial computed tomography images of the head/brain without intravenous contrast. CTDI is 35.07 mGy and DLP is 537.48 mGy-cm. Automated exposure control was utilized for the study. A dose lowering technique was utilized adhering to the principles of ALARA. COMPARISON: No relevant prior studies available. FINDINGS: No acute intracranial hemorrhage. No midline shift or mass effect. The territorial kent-white matter differentiation is maintained throughout. Age-related cerebral volume loss. Periventricular and subcortical white matter hypoattenuation, consistent with chronic microangiopathy. The visualized orbits appear grossly unremarkable. The calvarium is intact. The visualized paranasal sinuses and mastoid air cells are grossly clear. IMPRESSION: No acute intracranial hemorrhage, midline shift, or mass effect. Electronically signed by: Niall Russo MD 02/09/23 21:54 PM [facility] Narrative This patient is a 63-year-old female who presents to the emergency department for evaluation of epigastric abdominal pain and vomiting. Patient has been having the symptoms for quite some time and has had multiple episodes of severe symptoms over the past few weeks. Work-up here including CT scan of the abdomen/pelvis, CT of the head and labs were grossly unremarkable. She had a mild leukocytosis which is likely due to vomiting. Patient was given multiple rounds of antiemetics with persistent vomiting/dry heaving. [facility] for [facility] care. Impression Intractable nausea and vomiting, Epigastric abdominal pain Discharge Plan Visit Data Chief Complaint: Vomiting Stated Complaint: REF BY DOC,VOMIT BILE,HEADACHE,DIZZINESS,BACK PAIN ED Provider: Tejas Champion ED Midlevel Provider: Johanna Sung Discharge Problem: Intractable nausea and vomiting, Epigastric abdominal pain Patient Disposition: Admitted As Inpatient Discharge Instructions Interventions: ED Discharge Assessment Last Done: 02/10/23 04:08
[2023-02-09 20:26] LABS: Appearance Urine Clear (Clear); Bacteria Urine Automated Negative (Negative); Bilirubin Urine Negative (Negative); Blood Urine Negative (Negative); Color Urine Dark Yellow; Epithelial Cell Urine Auto 20-30 /lpf (0-5); Glucose Urine UA Negative (Negative); Ketones Urine 1+ (Negative); Leukocyte Esterase Urine Negative (Negative); Nitrite Urine Negative (Negative); Protein Urine Trace (Negative); RBC Urine Automated 0-4 /hpf (0-4); Specific Gravity Urine 1.029 (1.000-1.030); Urobilinogen Urine Negative (Negative); pH Urine 6.5 (4.5-7.5)
--- NOTE | 2023-02-09 20:50 | CT Scan Report ---
Exam(s): CT ABDOMEN + PELVIS With Contrast IV Amt: 87ml optiray 320 EXAM: CT Abdomen and Pelvis With Intravenous Contrast CLINICAL HISTORY: Reason for exam: Upper and/back pain, vomiting. TECHNIQUE: Axial computed tomography images of the abdomen and pelvis with intravenous contrast. CTDI is 20.76 mGy and DLP is 1029.83 mGy-cm. Automated exposure control was utilized for the study. A dose lowering technique was utilized adhering to the principles of ALARA. CONTRAST: Patient received 87ml optiray 320 of IV contrast COMPARISON: No relevant prior studies available. FINDINGS: Lung bases: Unremarkable. No mass. No consolidation. ABDOMEN: Liver: Hepatic steatosis. Gallbladder and bile ducts: Cholecystectomy. No ductal dilation. Pancreas: Unremarkable. No mass. No ductal dilation. Spleen: Unremarkable. No splenomegaly. Adrenals: Unremarkable. No mass. Kidneys and ureters: Unremarkable. No hydronephrosis or delayed nephrogram. Stomach and bowel: Diverticulosis, without acute diverticulitis. No small bowel obstruction. No free intraperitoneal air. PELVIS: Appendix: No secondary signs of acute appendicitis. Bladder: Decompressed urinary bladder. Reproductive: Unremarkable as visualized. ABDOMEN and PELVIS: Intraperitoneal space: Unremarkable. No free air. No significant fluid collection. Bones/joints: Degenerative changes of the spine. Posterior fusion L4- L5 with L5 and L5 laminectomies. No acute fracture. No dislocation. Soft tissues: Unremarkable. Vasculature: Unremarkable. No abdominal aortic aneurysm. Lymph nodes: Unremarkable. No enlarged lymph nodes. IMPRESSION: 1. Diverticulosis, without acute diverticulitis. No small bowel obstruction. No free intraperitoneal air. 2. Hepatic steatosis. 3. Cholecystectomy. Electronically signed by: Niall Russo MD 02/09/23 20:50 PM
[2023-02-09] MEDS ORDERED: SODIUM CHLORIDE 0.9% 1000ML 1,000 ML IV ONE (21:03)
[2023-02-09] MEDS ORDERED: diphenhydrAMINE 50 MG/ML VIAL IV STA (21:03)
[2023-02-09] MEDS ORDERED: KETOROLAC TROMETHAMINE 15 MG/ML VIAL IV STA (21:03)
[2023-02-09] MEDS ORDERED: METOCLOPRAMIDE HCL INJ 5 MG/ML 2 ML VIAL IV ONE (21:03)
--- NOTE | 2023-02-09 21:55 | CT Scan Report ---
Exam(s): CT HEAD Without Contrast EXAM: CT Head Without Intravenous Contrast CLINICAL HISTORY: Reason for exam: Headaches, vomiting. TECHNIQUE: Axial computed tomography images of the head/brain without intravenous contrast. CTDI is 35.07 mGy and DLP is 537.48 mGy-cm. Automated exposure control was utilized for the study. A dose lowering technique was utilized adhering to the principles of ALARA. COMPARISON: No relevant prior studies available. FINDINGS: No acute intracranial hemorrhage. No midline shift or mass effect. The territorial kent-white matter differentiation is maintained throughout. Age-related cerebral volume loss. Periventricular and subcortical white matter hypoattenuation, consistent with chronic microangiopathy. The visualized orbits appear grossly unremarkable. The calvarium is intact. The visualized paranasal sinuses and mastoid air cells are grossly clear. IMPRESSION: No acute intracranial hemorrhage, midline shift, or mass effect. Electronically signed by: Niall Russo MD 02/09/23 21:54 PM
[2023-02-09] MEDS ORDERED: PROMETHAZINE 12.5 MG/50.5 ML BAG IV STA (22:26)
--- NOTE | 2023-02-10 00:59 | History & Physical Report ---
Date of Service February 10, 2023 Assessment & Plan (1) Intractable nausea and vomiting: Plan: 63-year-old female with past medical history eustachian tube dysfunction, GERD, hx of kidney stones, HTN, migraines, chronic diarrhea admitted for intractable nausea and vomiting. Intractable nausea and vomiting/dizziness: -WC 11.12, CMP unremarkable, lipase negative. -UA negative. -CT head negative, CT abdomen pelvis negative for any acute processes. -Patient was supposed to get MRI brain outpatient on the . Can expedite due to negative CT and continued dizziness, N/V. -Given Zofran, Reglan, Phenergan, Benadryl in the ED all without relief. -Unclear origin of nausea and vomiting. Patient has had outpatient work-up with GI including endoscopy which was non-conclusive. Patient also claims that she had a gastric emptying study however I am unable to locate in the [facility] chart. -Zofran PRN q6h for nausea. If needed can add on more Reglan. -Consulted GI, will appreciate GI perspective and recs. -NPO but can advance diet if tolerated. -Admit to med/tele HTN: -continue lisinopril 10mg if able to take. Sleep Apnea: -CPAP qHS. Depression: -Not on any medications. F/E/N/GI: NPO but can advance if tolerable. DVT Prophylaxis: SCD Code status: Full code Dispo: med/tele. (2) Dizziness: (3) History of cataract surgery: (4) Sleep apnea: (5) HTN (hypertension): (6) Depression: History of Present Illness Chief Complaint: Nausea, vomiting Primary Care Provider: Apurva Draper MD Simin is a 63 year old female w/ PmHx eustachian tube dysfunction, GERD, hx of kidney stones, HTN, migraines, chronic diarrhea coming into the ED for nausea, vomiting, dizziness. Patient states that over the past 4 to 5 weeks she has had episodes of nausea vomiting and dizziness that are more prominent in the morning and by the time that she gets hungry. She states that this worsened over the day today as she has had 15 episodes of emesis over the past day. She says the emesis is bile-jairo color and nature being green and sometimes yellow. She is also had some associated abdominal pain at the upper quadrants. She has had some loose bowel movements however she is struggled with on and off diarrhea alternating between diarrhea and constipation for quite some time now. She says that she is try to take Zofran at home however that did not affect her nausea or vomiting. Patient is unable to keep anything down food or drink. She denies fevers, chills, shortness of breath, changes in vision or hearing, urinary symptoms. In the ED her WBC 11.12, CBC otherwise unremarkable, CMP unremarkable, lipase negative. CT head without any acute abnormalities, CT abdomen pelvis with diverticulosis without diverticulitis, no small bowel obstruction, no free intraperitoneal air, cholecystectomy. Patient was given 4 mg of ondansetron, 25 mg diphenhydramine, 5 mg metoclopramide, 2.5 mg promethazine. Allergies Allergy/AdvReac Type Severity Reaction Status Date / Time phentermine AdvReac Elevated Verified 02/10/23 00:00 blood pressure Home Medications Medication Instructions Recorded Confirmed Type CPAP Machine #1 ea 06/08/22 01/25/23 Rx lisinopril 10 mg tablet 10 mg PO DAILY #90 tabs 08/11/22 02/09/23 Rx CPAP Supplies #4 ea 10/20/22 01/25/23 Rx pediatric multivitamin no.209 1 tab PO DAILY 11/15/22 02/09/23 History (Children's Multivitamin Gummy chewable tablet) cyclosporine 0.05 % eye drops in a 1 drp ophthalmic (eye) Q12H 01/25/23 02/09/23 History dropperette (Restasis) metformin 500 mg tablet 500 mg PO BID 01/25/23 02/09/23 History ondansetron HCl 8 mg tablet 8 mg PO Q8H PRN nausea and 01/25/23 02/09/23 Rx vomiting #30 tabs nystatin 100,000 unit/mL oral 1 ml PO DAILY #60 mL 01/27/23 02/09/23 Rx suspension Past Med/Surg History Medical History (Updated 02/10/23 @ 01:33 by Jeremy Robertson DO) Anxiety Chronic diarrhea COVID-19 home test on 09/18/21 positive; c/o cough, dizziness, congestion, joint pain Dizziness Eustachian tube dysfunction Fecal retention GERD (gastroesophageal reflux disease) HX OF/RE-OCCURS/NOT A CURRENT PROBLEM Head and face pain History of kidney stones HTN (hypertension) Hydronephrosis Hydroureter Impacted cerumen, right ear Kidney stone SMALL STONE CURRENLTY/CAUSING NO PROBLEMS Migraines Otalgia, right ear Positional vertigo Sensation of chest pressure Serous otitis media of right ear with rupture of tympanic membrane Surgical History History of bilateral tubal ligation History of cataract surgery December 2022 History of cholecystectomy History of colonoscopy History of cystoscopy History of endoscopic sinus surgery & Right Myringotomy and Tube placement - 09/11/[address] Galloway History of esophagogastroduodenoscopy (EGD) History of fusion of cervical spine normal ROM History of lumbar spinal fusion x2 History of placement of ear tubes Right Myringotomy and tube - 09/11/[address] Galloway Repeated by Dr. Galloway on 10/29/21 History of rhinoplasty History of tonsillectomy History of tooth extraction History of urologic surgery FOR KIDNEY STONES, STENT History of wisdom tooth extraction Status post correction of deviated nasal septum x2 Family History Son Family history of reaction to anesthesia Aunt Family history of colon cancer Father Asthma Other Cancer Diabetes Patient's father is Peritonitis Thyroid disorder Social History Smoking Status: Former smoker Second Hand Exposure: No; Do You Dip or Chew Tobacco: No; Hx Alcohol Use: Yes Alcohol type: wine Hx Substance Use: No Preferred Language: Trinidadian Communication Ability: Effective Logistics Officer Required: No Beliefs That Will Affect Care: None marital status: Current Living Situation: Spouse current occupational status: employed current occupation: self employed Feels Safe at Home: Yes caffeine: Yes Dental Care, Regularly: Yes Seatbelt Use: always Sunscreen Use: Yes Assistive Devices: Glasses Review of Systems Review of Systems: As per HPI. Physical Exam Constitutional: WD/WN, vitals as above Eyes: PERRL, conjunctivae normal, anicteric sclerae Respiratory: normal respiratory effort, lungs clear to auscultation Cardiovascular: RRR, no murmur, no edema Gastrointestinal (Abdomen): Bowel sounds positive, soft, nondistended, tender to palpation at the upper abdominal region. Psychiatric: A+Ox3, euthymic affect Results & Data Results & Data Vital Signs (Past 12 Hours) Vital Signs Temp Pulse Pulse Resp BP BP Pulse Ox 02/10/23 00:15 71 02/09/23 22:11 71 19 178/102 H 96 02/09/23 20:09 75 02/09/23 20:06 76 20 184/99 H 96 02/09/23 17:40 36.8 C 81 18 175/101 H 96 O2 Del Method 02/10/23 00:15 02/09/23 22:11 Room Air 02/09/23 20:09 02/09/23 20:06 Room Air 02/09/23 17:40 Room Air Supervising Physician Co-Signing Physician Notes Patient seen and examined, chart reviewed, case discussed with Dr. Robertson and I agree with the assessment and plan as above. Resident Activity Tracking Resident Involvement: Resident Care Provided Care Provided: Adult Hospital Medicine
[2023-02-10] MEDS ORDERED: ONDANSETRON INJ 2 MG/ML 2 ML VIAL IV STA (03:04)
[2023-02-10] MEDS ORDERED: ACETAMINOPHEN 1,000 MG/100 ML VIAL IV PRN (04:13)
--- NOTE | 2023-02-10 05:18 | Billing Data ---
Date of Service February 10, 2023 Coding Level of Care Code 75197 INT INP/OBS CARE
[2023-02-10] MEDS: ONDANSETRON INJ 2 MG/ML 2 ML VIAL IV PRN ×2 (06:25→19:43)
[2023-02-10] MEDS ORDERED: RESTASIS~ORDER AWAITING ACTION SCH (08:00)
--- NOTE | 2023-02-10 08:06 | Magnetic Resonance Report ---
MRI OF THE BRAIN WITHOUT IV CONTRAST CLINICAL HISTORY: Dizziness. Headache. COMPARISON STUDY: CT of the brain dated 02/09/2023. TECHNIQUE: MRI of the brain was performed utilizing various T1 and T2-weighted sequences in the axial , sagittal, and coronal planes. IV contrast was not administered for this examination. FINDINGS: Brain parenchyma: There is minimal microangiopathic change. There is no hemorrhage or mass effect. Th ere is no restricted diffusion to suggest acute ischemia. Link-white matter differentiation is preser marky. No extra-axial fluid collection is seen. The cerebellar tonsils are normal in configuration. Ventricles, sulci, and cisterns: Normal in configuration. Pituitary and sella: Unremarkable. Intracranial vasculature: Normal flow voids are maintained at the skull base. Orbits: The bony orbits are grossly intact. Orbital contents are normal in appearance. Sinuses and mastoids: Clear. Calvarium: Unremarkable. Cervical cord: Partially visualized cervical spinal cord is normal in morphology and signal intensity . IMPRESSION: No acute intracranial abnormality. ACT 112: Negative or not required by law. Electronically signed by: Yordan Gordon M.D. 02/10/2023 8:05 AM
[2023-02-10] MEDS: FAMOTIDINE 20 MG TAB PO SCH (09:22)
[2023-02-10] MEDS: lisinopril 10 MG TAB PO SCH (09:22)
--- NOTE | 2023-02-10 09:52 | Gastrointestinal Consultation ---
Date of Consultation February 10, 2023 Assessment & Plan (1) Intractable nausea and vomiting: (2) Epigastric abdominal pain: (3) Constipation: Plan 1. NPO for now. 2. Acute abdominal series now. 3. Determine need for possible EGD pending results of testing. 4. Continue supportive care. Thank you for allowing us to participate in the care of this patient. If you have any questions or concerns, please do not hesitate to contact us. Supervising Physician Co-Signing Physician Notes Agree with SHRUTHI Salgado as above Abd: Soft, NT, ND, +BS Continue current therapy and supportive care EGD in AM History of Present Illness Reason for Consultation: N/V Requesting Physician: Dr. Robertson Attending Physician: Jhonatan Velarde MD History of Present Illness Patient is a 63 y.o. female with a history of chronic constipation last seen in the office by Rachel Agrawal PA-C on 07/23/22. At that time, there was discussion about initiation of Linzess if the medication could be approved through insurance. She was not able to obtain the medication and has been managing her constipation with OTC medications. States she was doing well in regard to her constipation until one month ago. She did have a KUB ordered by her PCP on 01/16. Has been having intermittent nausea with bilious emesis over the past several weeks. Last week, she had an episode of constipation during which she passed a large, hard stool. Since yesterday, however, she has had persisting nausea with intermittent bilious emesis. Last episode was approximately midnight. Reports associated epigastric discomfort "like a ball" and headaches. No overt GIB. Labs reviewed. No anemia. BUN is normal. CT a/p without acute findings. S/P cholecystectomy. GES normal in the past. Allergies Allergy/AdvReac Type Severity Reaction Status Date / Time phentermine AdvReac Elevated Verified 02/10/23 00:00 blood pressure Home Medications Medication Instructions Recorded Confirmed Type CPAP Machine #1 ea 06/08/22 01/25/23 Rx lisinopril 10 mg tablet 10 mg PO DAILY #90 tabs 08/11/22 02/09/23 Rx CPAP Supplies #4 ea 10/20/22 01/25/23 Rx pediatric multivitamin no.209 1 tab PO DAILY 11/15/22 02/09/23 History (Children's Multivitamin Gummy chewable tablet) cyclosporine 0.05 % eye drops in a 1 drp ophthalmic (eye) Q12H 01/25/23 02/09/23 History dropperette (Restasis) metformin 500 mg tablet 500 mg PO BID 01/25/23 02/09/23 History ondansetron HCl 8 mg tablet 8 mg PO Q8H PRN nausea and 01/25/23 02/09/23 Rx vomiting #30 tabs nystatin 100,000 unit/mL oral 1 ml PO DAILY #60 mL 01/27/23 02/09/23 Rx suspension Patient History Medical History Anxiety Chronic diarrhea COVID-19 home test on 09/18/21 positive; c/o cough, dizziness, congestion, joint pain Dizziness Eustachian tube dysfunction Fecal retention GERD (gastroesophageal reflux disease) HX OF/RE-OCCURS/NOT A CURRENT PROBLEM Head and face pain History of kidney stones HTN (hypertension) Hydronephrosis Hydroureter Impacted cerumen, right ear Kidney stone SMALL STONE CURRENLTY/CAUSING NO PROBLEMS Migraines Otalgia, right ear Positional vertigo Sensation of chest pressure Serous otitis media of right ear with rupture of tympanic membrane Surgical History History of bilateral tubal ligation History of cataract surgery December 2022 History of cholecystectomy History of colonoscopy History of cystoscopy History of endoscopic sinus surgery & Right Myringotomy and Tube placement - 09/11/[address] Galloway History of esophagogastroduodenoscopy (EGD) History of fusion of cervical spine normal ROM History of lumbar spinal fusion x2 History of placement of ear tubes Right Myringotomy and tube - 09/11/[address] Galloway Repeated by Dr. Galloway on 10/29/21 History of rhinoplasty History of tonsillectomy History of tooth extraction History of urologic surgery FOR KIDNEY STONES, STENT History of wisdom tooth extraction Status post correction of deviated nasal septum x2 Family History Son Family history of reaction to anesthesia makes oldest son "goofy" Aunt Family history of colon cancer Father Asthma Other Cancer Diabetes Patient's father is Peritonitis Thyroid disorder Social History Smoking Status: Never smoker Second Hand Exposure: No; Do You Dip or Chew Tobacco: No; Hx Alcohol Use: No Hx Substance Use: No Preferred Language: Serbian Communication Ability: Effective Operations Tech Required: No Beliefs That Will Affect Care: None marital status: Current Living Situation: Spouse current occupational status: employed current occupation: self employed Feels Safe at Home: Yes caffeine: Yes Dental Care, Regularly: Yes Seatbelt Use: always Sunscreen Use: Yes Assistive Devices: CPAP and Glasses Review of Systems Constitutional: + fatigue; no fever and no chills Respiratory: + dyspnea Cardiovascular: no chest pain and no palpitations Gastrointestinal: as per Subjective / HPI Physical Exam Constitutional: WD/WN, vitals as above Eyes: EOM intact bilaterally Neck: normal appearance Respiratory: normal respiratory effort, lungs clear to auscultation Cardiovascular: Rate/Rhythm: regular rate and regular rhythm Heart Sounds: no gallop and no murmur Gastrointestinal (Abdomen): Inspection/Auscultation: normal bowel sounds and + significant pannus Percussion/Palpation: + abdomen tender (moderate epigastric tenderness) and abdomen soft Musculoskeletal: Extremities: no cyanosis no lower extremity edema Skin: no rashes, warm and dry Neurologic: moves all extremities Psychiatric: A+Ox3, euthymic affect Results & Data Vital Signs (Past 12 Hours) Vital Signs Pulse Pulse Resp BP Pulse Ox O2 Del Method 02/10/23 07:19 67 16 163/80 H 92 Room Air 02/10/23 07:17 73 02/10/23 04:10 68 02/10/23 00:15 71 02/09/23 22:11 71 19 178/102 H 96 Room Air Diagnostic Findings Laboratory Results WBC 11.12 K/ul (4.8-10.8) H 02/09/23 18:00 RBC 5.39 M/uL (4.20-5.40) 02/09/23 18:00 Hgb 16.0 g/dl (12.0-16.0) 02/09/23 18:00 Hct 48.9 % (37.0-47.0) H 02/09/23 18:00 MCV 90.7 fL (80.0-100.0) 02/09/23 18:00 MCH 29.7 pg (25.0-34.0) 02/09/23 18:00 MCHC 32.7 g/dL (32.0-36.0) 02/09/23 18:00 RDW Std Deviation 43.8 fL (36.4-46.3) 02/09/23 18:00 RDW Coeff of Shane 13.1 % (11.5-14.5) 02/09/23 18:00 Plt Count 297 K/uL (130-400) 02/09/23 18:00 MPV 11.7 fL (9.4-12.4) 02/09/23 18:00 Immature Gran % (Auto) 0.3 % 02/09/23 18:00 Neut % (Auto) 77.8 % 02/09/23 18:00 Lymph % (Auto) 14.6 % 02/09/23 18:00 [place] % (Auto) 6.9 % 02/09/23 18:00 Eos % (Auto) 0.1 % 02/09/23 18:00 Baso % (Auto) 0.3 % 02/09/23 18:00 Neut # (Auto) 8.66 K/uL (1.40-6.50) H 02/09/23 18:00 Lymph # (Auto) 1.62 K/uL (1.2-3.4) 02/09/23 18:00 [place] # (Auto) 0.77 K/uL (0.11-0.59) H 02/09/23 18:00 Eos # (Auto) 0.01 K/uL (0-0.50) 02/09/23 18:00 Baso # (Auto) 0.03 K/uL (0-0.2) 02/09/23 18:00 Immature Gran # (Auto) 0.03 K/uL (0.01-0.20) 02/09/23 18:00 Sodium 138 mmol/L (136-145) 02/09/23 18:00 Potassium 4.3 mmol/L (3.5-5.1) 02/09/23 18:00 Chloride 105 mmol/L (98-107) 02/09/23 18:00 Carbon Dioxide 28 mmol/L (21-32) 02/09/23 18:00 Anion Gap 5 (3-11) 02/09/23 18:00 BUN 9 mg/dl (6-23) 02/09/23 18:00 Creatinine 0.68 mg/dl (0.6-1.2) 02/09/23 18:00 Est Cr Clr Drug Dosing Not Reportable 02/09/23 18:00 Est GFR ( Amer) 107.1 ml/min 02/09/23 18:00 Est GFR (Non-Af Amer) 92.4 ml/min 02/09/23 18:00 BUN/Creatinine Ratio 13.2 (10-20) 02/09/23 18:00 Glucose 102 mg/dl (70-99(Fasting)) H 02/09/23 18:00 Calcium 9.4 mg/dl (8.6-10.3) 02/09/23 18:00 Total Bilirubin 0.7 mg/dl (0.2-1.0) 02/09/23 18:00 AST 20 U/L (13-39) 02/09/23 18:00 ALT 23 U/L (7-52) 02/09/23 18:00 Alkaline Phosphatase 98 U/L (34-104) 02/09/23 18:00 Total Protein 7.7 gm/dl (6.0-8.3) 02/09/23 18:00 Albumin 4.3 gm/dl (3.4-5.0) 02/09/23 18:00 Globulin 3.4 gm/dl (2.5-4.0) 02/09/23 18:00 Albumin/Globulin Ratio 1.3 (0.9-2) 02/09/23 18:00 Lipase 21 U/L (11-82) 02/09/23 18:00 Urine Color Dark Yellow 02/09/23 20:03 Urine Appearance Clear (Clear) 02/09/23 20:03 Urine pH 6.5 (4.5-7.5) 02/09/23 20:03 Ur Specific [place] 1.029 (1.000-1.030) 02/09/23 20:03 Urine Protein Trace (Negative) H 02/09/23 20:03 Urine Glucose (UA) Negative (Negative) 02/09/23 20:03 Urine Ketones 1+ (Negative) H 02/09/23 20:03 Urine Blood Negative (Negative) 02/09/23 20:03 Urine Nitrite Negative (Negative) 02/09/23 20:03 Urine Bilirubin Negative (Negative) 02/09/23 20:03 Urine Urobilinogen Negative (Negative) 02/09/23 20:03 Ur Leukocyte Esterase Negative (Negative) 02/09/23 20:03 Urine WBC (Auto) 1-5 /hpf (0-5) 02/09/23 20:03 Urine RBC (Auto) 0-4 /hpf (0-4) 02/09/23 20:03 U Hyaline Cast (Auto) 1-5 /lpf (0-5) 02/09/23 20:03 U Epithel Cells (Auto) 20-30 /lpf (0-5) H 02/09/23 20:03 Urine Bacteria (Auto) Negative (Negative) 02/09/23 20:03 SARS-CoV-2, RNA, NAAT NEGATIVE (NEGATIVE) 02/09/23 23:47 Impressions Abdomen/Pelvis CT 02/09/23 17:42 Exam(s): CT ABDOMEN + PELVIS With Contrast IV Amt: 87ml optiray 320 EXAM: CT Abdomen and Pelvis With Intravenous Contrast CLINICAL HISTORY: Reason for exam: Upper and/back pain, vomiting. TECHNIQUE: Axial computed tomography images of the abdomen and pelvis with intravenous contrast. CTDI is 20.76 mGy and DLP is 1029.83 mGy-cm. Automated exposure control was utilized for the study. A dose lowering technique was utilized adhering to the principles of ALARA. CONTRAST: Patient received 87ml optiray 320 of IV contrast COMPARISON: No relevant prior studies available. FINDINGS: Lung bases: Unremarkable. No mass. No consolidation. ABDOMEN: Liver: Hepatic steatosis. Gallbladder and bile ducts: Cholecystectomy. No ductal dilation. Pancreas: Unremarkable. No mass. No ductal dilation. Spleen: Unremarkable. No splenomegaly. Adrenals: Unremarkable. No mass. Kidneys and ureters: Unremarkable. No hydronephrosis or delayed nephrogram. Stomach and bowel: Diverticulosis, without acute diverticulitis. No small bowel obstruction. No free intraperitoneal air. PELVIS: Appendix: No secondary signs of acute appendicitis. Bladder: Decompressed urinary bladder. Reproductive: Unremarkable as visualized. ABDOMEN and PELVIS: Intraperitoneal space: Unremarkable. No free air. No significant fluid collection. Bones/joints: Degenerative changes of the spine. Posterior fusion L4- L5 with L5 and L5 laminectomies. No acute fracture. No dislocation. Soft tissues: Unremarkable. Vasculature: Unremarkable. No abdominal aortic aneurysm. Lymph nodes: Unremarkable. No enlarged lymph nodes. IMPRESSION: 1. Diverticulosis, without acute diverticulitis. No small bowel obstruction. No free intraperitoneal air. 2. Hepatic steatosis. 3. Cholecystectomy. Electronically signed by: Niall Russo MD 02/09/23 20:[address] 02/09/23 21:02 Exam(s): CT HEAD Without Contrast EXAM: CT Head Without Intravenous Contrast CLINICAL HISTORY: Reason for exam: Headaches, vomiting. TECHNIQUE: Axial computed tomography images of the head/brain without intravenous contrast. CTDI is 35.07 mGy and DLP is 537.48 mGy-cm. Automated exposure control was utilized for the study. A dose lowering technique was utilized adhering to the principles of ALARA. COMPARISON: No relevant prior studies available. FINDINGS: No acute intracranial hemorrhage. No midline shift or mass effect. The territorial link-white matter differentiation is maintained throughout. Age-related cerebral volume loss. Periventricular and subcortical white matter hypoattenuation, consistent with chronic microangiopathy. The visualized orbits appear grossly unremarkable. The calvarium is intact. The visualized paranasal sinuses and mastoid air cells are grossly clear. IMPRESSION: No acute intracranial hemorrhage, midline shift, or mass effect. Electronically signed by: Niall Russo MD 02/09/23 21:54 PM Brain MRI 02/10/23 04:13 MRI OF THE BRAIN WITHOUT IV CONTRAST CLINICAL HISTORY: Dizziness. Headache. COMPARISON STUDY: CT of the brain dated 02/09/2023. TECHNIQUE: MRI of the brain was performed utilizing various T1 and T2-weighted sequences in the axial, sagittal, and coronal planes. IV contrast was not administered for this examination. FINDINGS: Brain parenchyma: There is minimal microangiopathic change. There is no hemorrhage or mass effect. There is no restricted diffusion to suggest acute ischemia. Link-white matter differentiation is preserved. No extra-axial fluid collection is seen. The cerebellar tonsils are normal in configuration. Ventricles, sulci, and cisterns: Normal in configuration. Pituitary and sella: Unremarkable. Intracranial vasculature: Normal flow voids are maintained at the skull base. Orbits: The bony orbits are grossly intact. Orbital contents are normal in appearance. Sinuses and mastoids: Clear. Calvarium: Unremarkable. Cervical cord: Partially visualized cervical spinal cord is normal in morphology and signal intensity. IMPRESSION: No acute intracranial abnormality. ACT 112: Negative or not required by law. Electronically signed by: Yordan Gordon M.D. 02/10/2023 8:05 AM PG Care Time/CCT Total # of Minutes Spent Total Time Spent with Patient: Total time spent is greater than 50% in coordination of care (as documented) at patient's floor/unit and/or counseling patient: Coding Level of Care Code 72558 OFFICE CONSULT LVL 01/06M Diagnoses Intractable nausea and vomiting R11.2 Epigastric abdominal pain R10.13 Constipation K59.00
[2023-02-10 10:47] LABS: Basophils # (auto) 0.02 K/uL (0-0.2); Basophils % (auto) 0.2 %; Hematocrit (blood only) 46.3 % (37.0-47.0); Hemoglobin 15.3 g/dl (12.0-16.0); Immature Granulocytes # (auto) 0.05 K/uL (0.01-0.20); Immature Granulocytes % (auto) 0.4 %; Lymphocytes # (auto) 1.49 K/uL (1.2-3.4); Mean Corpuscular Hemoglobin 30.2 pg (25.0-34.0); Mean Corpuscular Volume 91.5 fL (80.0-100.0); Mean Platelet Volume 11.8 fL (9.4-12.4); Monocytes # (auto) 0.98 K/uL (0.11-0.59); Monocytes % (auto) 7.9 %; Neutrophils # (auto) 9.89 K/uL (1.40-6.50); Neutrophils % (auto) 79.5 %; Platelet Count 257 K/uL (130-400); RDW Coefficient of Variation 13.2 % (11.5-14.5); RDW Standard Deviation 44.3 fL (36.4-46.3); Red Blood Count 5.06 M/uL (4.20-5.40); White Blood Count 12.43 K/ul (4.8-10.8)
[2023-02-10 10:55] LABS: Albumin Globulin Ratio 1.3 (0.9-2); Albumin Level 4.1 gm/dl (3.4-5.0); BUN Creatinine Ratio 18.8 (10-20); Bilirubin,Total 0.6 mg/dl (0.2-1.0); Calcium 9.1 mg/dl (8.6-10.3); Creatinine Clr Calc Pharmacy 116.4 ml/min; Est GFR (African American) 109.3 ml/min; Est GFR (Non-African American) 94.3 ml/min; Globulin 3.1 gm/dl (2.5-4.0); Magnesium 2.4 mg/dl (1.7-2.4); Potassium 3.9 mmol/L (3.5-5.1); Total Protein 7.2 gm/dl (6.0-8.3)
--- NOTE | 2023-02-10 11:27 | XRay Report ---
CHEST AND ABDOMEN 2 VIEWS HISTORY: hx of severe constipation, intract n/v, epi pain COMPARISON: KUB 01/17/2023. Abdomen and pelvis CT 02/09/2023. FINDINGS: No pneumothorax. No pleural effusions. The lungs are clear. The heart is normal in size. Ce rvical spinal fusion hardware and old, healed left-sided rib fractures are noted. No pneumoperitoneum . No pneumatosis. Prior cholecystectomy. Lower lumbar spinal fusion hardware is again noted. No renal or ureteral calculi. No dilated loops of bowel to suggest an obstruction. IMPRESSION: No acute cardiopulmonary process. No evidence for bowel obstruction. ACT 112: Negative or not required by law. Electronically signed by: Sadiq Alva M.D. 02/10/2023 11:25 AM
--- NOTE | 2023-02-10 11:40 | Electrocardiogram Report ---
Test Reason : Blood Pressure : / mmHG Vent. Rate : 065 BPM Atrial Rate : 065 BPM P-R Int : 150 ms QRS Dur : 088 ms QT Int : 400 ms P-R-T Axes : 064 065 043 degrees QTc Int : 416 ms Normal sinus rhythm Normal ECG When compared with ECG of 07-JAN-2022 12:17, No significant change was found Confirmed by Sergio Hutchins ([id number]) on 02/10/2023 11:40:34 AM Referred By: Apurva Oakley Confirmed By:Sergio Hutchins
[2023-02-10] MEDS: SODIUM CHLORIDE 0.9% 1000ML 1,000 ML IV SCH ×2 (12:53→22:40)
--- NOTE | 2023-02-10 13:40 | History & Physical Bridge Note ---
Date of Service February 10, 2023 History & Physical Bridge Note I have examined the patient, reviewed the History & Physical and in the interval since the performance of the History & Physical I have noted the following changes of clinical significance: no changes noted Patient seen in room 287, resting in bed upon entry. Reporting no further vomiting since about 1am this morning. No abdominal pain, chest pain or shortness of breath reported. Mouth dry -- she reports someone was going to get her a mouth swab. Discussed keeping NPO and will plan for EGD for tomorrow morning as discussed w/ Dalia this morning. Antiemetics available prn. She denies any new medications, alcohol/excessive NSAID use. Had some issues with constipation last week and took some milk of magnesia and then had some diarrhea following. No fevers at home. No medical marijuana use. Will check stool PCR for completeness given recent GI viral illnesses going around/diarrhea for completeness. Questions/concerns addressed at this time. Supervising Physician Co-Signing Physician Notes The patient was not seen by me. The chart was reviewed. Case discussed with BEKA Parada. Agree with assessment and plan
[2023-02-10] MEDS ORDERED: ARTIFICIAL TEARS OP PRN (14:30)
[2023-02-10] MEDS ORDERED: SIMETHICONE 80 MG CHEW PO ONE (23:26)
[2023-02-11] MEDS: ONDANSETRON INJ 2 MG/ML 2 ML VIAL IV PRN (03:53)
[2023-02-11] MEDS: FAMOTIDINE 20 MG TAB PO SCH (08:08)
[2023-02-11] MEDS: lisinopril 10 MG TAB PO SCH (08:08)
[2023-02-11 08:10] LABS: Albumin Level 3.7 gm/dl (3.4-5.0); Bilirubin Direct 0.1 mg/dl (0-0.2); Bilirubin,Total 0.8 mg/dl (0.2-1.0); Calcium 8.1 mg/dl (8.6-10.3)
[2023-02-11] MEDS: SODIUM CHLORIDE 0.9% 1000ML 1,000 ML IV SCH (08:10)
[2023-02-11 08:16] LABS: BUN Creatinine Ratio 20.3 (10-20); Creatinine Clr Calc Pharmacy 126.5 ml/min; Est GFR (African American) 112.3 ml/min; Est GFR (Non-African American) 96.9 ml/min; Total Protein 6.6 gm/dl (6.0-8.3)
--- NOTE | 2023-02-11 08:21 | Hospitalist Progress Note ---
Date of Service February 11, 2023 Assessment & Plan Admission and Anticipated Discharge Date Admission Date: February 10, 2023 Results & Data Results & Data Vital Signs (Past 12 Hours) Vital Signs Temp Pulse Pulse Resp BP BP Pulse Ox 02/11/23 07:31 36.4 C L 64 18 136/84 94 02/11/23 04:05 36.7 C 63 18 159/90 H 95 02/11/23 00:55 70 02/10/23 23:07 37.3 C 65 16 162/96 H 95 O2 Del Method 02/11/23 07:31 Room Air 02/11/23 04:05 Room Air 02/11/23 00:55 02/10/23 23:07 Room Air Laboratory Results 02/11/23 02/11/23 02/10/23 Range/Units 07:25 07:25 16:37 WBC Pending (4.8-10.8) K/ul RBC Pending (4.20-5.40) M/uL Hgb Pending (12.0-16.0) g/dl Hct Pending (37.0-47.0) % MCV Pending (80.0-100.0) fL MCH Pending (25.0-34.0) pg MCHC Pending (32.0-36.0) g/dL RDW Std Deviation (36.4-46.3) fL RDW Coeff of Shane (11.5-14.5) % Plt Count Pending (130-400) K/uL MPV (9.4-12.4) fL Immature Gran % (Auto) % Neut % (Auto) % Lymph % (Auto) % [place] % (Auto) % Eos % (Auto) % Baso % (Auto) % Neut # (Auto) (1.40-6.50) K/uL Lymph # (Auto) (1.2-3.4) K/uL [place] # (Auto) (0.11-0.59) K/uL Eos # (Auto) (0-0.50) K/uL Baso # (Auto) (0-0.2) K/uL Immature Gran # (Auto) (0.01-0.20) K/uL Sodium 136 (136-145) mmol/L Potassium 4.0 (3.5-5.1) mmol/L Chloride 107 (98-107) mmol/L Carbon Dioxide 20 L (21-32) mmol/L Anion Gap 9 (3-11) BUN 12 (6-23) mg/dl Creatinine 0.59 L (0.6-1.2) mg/dl Est Cr Clr Drug Dosing 126.5 ml/min Est GFR ( Amer) 112.3 ml/min Est GFR (Non-Af Amer) 96.9 ml/min BUN/Creatinine Ratio 20.3 H (10-20) Glucose 92 (70-99(Fasting)) mg/dl Calcium 8.1 L (8.6-10.3) mg/dl Magnesium 2.0 (1.7-2.4) mg/dl Total Bilirubin 0.8 (0.2-1.0) mg/dl Direct Bilirubin 0.1 (0-0.2) mg/dl AST 18 (13-39) U/L ALT 15 (7-52) U/L Alkaline Phosphatase 87 (34-104) U/L Total Protein 6.6 (6.0-8.3) gm/dl Albumin 3.7 (3.4-5.0) gm/dl Globulin (2.5-4.0) gm/dl Albumin/Globulin Ratio (0.9-2) Procalcitonin < 0.05 (0-0.5) ng/ml 02/10/23 02/10/23 Range/Units 10:15 10:15 WBC 12.43 H (4.8-10.8) K/ul RBC 5.06 (4.20-5.40) M/uL Hgb 15.3 (12.0-16.0) g/dl Hct 46.3 (37.0-47.0) % MCV 91.5 (80.0-100.0) fL MCH 30.2 (25.0-34.0) pg MCHC 33.0 (32.0-36.0) g/dL RDW Std Deviation 44.3 (36.4-46.3) fL RDW Coeff of Shane 13.2 (11.5-14.5) % Plt Count 257 (130-400) K/uL MPV 11.8 (9.4-12.4) fL Immature Gran % (Auto) 0.4 % Neut % (Auto) 79.5 % Lymph % (Auto) 12.0 % [place] % (Auto) 7.9 % Eos % (Auto) 0.0 % Baso % (Auto) 0.2 % Neut # (Auto) 9.89 H (1.40-6.50) K/uL Lymph # (Auto) 1.49 (1.2-3.4) K/uL [place] # (Auto) 0.98 H (0.11-0.59) K/uL Eos # (Auto) 0.00 (0-0.50) K/uL Baso # (Auto) 0.02 (0-0.2) K/uL Immature Gran # (Auto) 0.05 (0.01-0.20) K/uL Sodium 138 (136-145) mmol/L Potassium 3.9 (3.5-5.1) mmol/L Chloride 106 (98-107) mmol/L Carbon Dioxide 25 (21-32) mmol/L Anion Gap 7 (3-11) BUN 12 (6-23) mg/dl Creatinine 0.64 (0.6-1.2) mg/dl Est Cr Clr Drug Dosing 116.4 ml/min Est GFR ( Amer) 109.3 ml/min Est GFR (Non-Af Amer) 94.3 ml/min BUN/Creatinine Ratio 18.8 (10-20) Glucose 107 H (70-99(Fasting)) mg/dl Calcium 9.1 (8.6-10.3) mg/dl Magnesium 2.4 (1.7-2.4) mg/dl Total Bilirubin 0.6 (0.2-1.0) mg/dl Direct Bilirubin (0-0.2) mg/dl AST 17 (13-39) U/L ALT 19 (7-52) U/L Alkaline Phosphatase 93 (34-104) U/L Total Protein 7.2 (6.0-8.3) gm/dl Albumin 4.1 (3.4-5.0) gm/dl Globulin 3.1 (2.5-4.0) gm/dl Albumin/Globulin Ratio 1.3 (0.9-2) Procalcitonin (0-0.5) ng/ml Diagnostic Findings Chest/Abdomen X-ray 02/10/23 09:50 CHEST AND ABDOMEN 2 VIEWS HISTORY: hx of severe constipation, intract n/v, epi pain COMPARISON: KUB 01/17/2023. Abdomen and pelvis CT 02/09/2023. FINDINGS: No pneumothorax. No pleural effusions. The lungs are clear. The heart is normal in size. Cervical spinal fusion hardware and old, healed left-sided rib fractures are noted. No pneumoperitoneum. No pneumatosis. Prior cholecystectomy. Lower lumbar spinal fusion hardware is again noted. No renal or ureteral calculi. No dilated loops of bowel to suggest an obstruction. IMPRESSION: No acute cardiopulmonary process. No evidence for bowel obstruction. ACT 112: Negative or not required by law. Electronically signed by: Sadiq Alva M.D. 02/10/2023 11:25 AM PG Care Time/CCT Total # of Minutes Spent Total Time Spent with Patient: Total time spent is greater than 50% in coordination of care (as documented) at patient's floor/unit and/or counseling patient: Coding Diagnoses
[2023-02-11 08:34] LABS: Basophils # (auto) 0.03 K/uL (0-0.2); Basophils % (auto) 0.3 %; Eosinophils # (auto) 0.02 K/uL (0-0.50); Eosinophils % (auto) 0.2 %; Hematocrit (blood only) 46.6 % (37.0-47.0); Immature Granulocytes # (auto) 0.03 K/uL (0.01-0.20); Immature Granulocytes % (auto) 0.3 %; Lymphocytes # (auto) 1.97 K/uL (1.2-3.4); Lymphocytes % (auto) 16.6 %; Mean Corpuscular Hemoglobin 30.2 pg (25.0-34.0); Mean Corpuscular Hgb Conc 32.2 g/dL (32.0-36.0); Mean Corpuscular Volume 93.8 fL (80.0-100.0); Mean Platelet Volume 12.2 fL (9.4-12.4); Monocytes # (auto) 1.03 K/uL (0.11-0.59); Monocytes % (auto) 8.7 %; Neutrophils # (auto) 8.77 K/uL (1.40-6.50); Neutrophils % (auto) 73.9 %; Platelet Count 206 K/uL (130-400); RDW Coefficient of Variation 13.2 % (11.5-14.5); RDW Standard Deviation 44.9 fL (36.4-46.3); Red Blood Count 4.97 M/uL (4.20-5.40); White Blood Count 11.85 K/ul (4.8-10.8)
--- NOTE | 2023-02-11 09:46 | History & Physical Bridge Note ---
Date of Service February 11, 2023 History & Physical Bridge Note I have examined the patient, reviewed the History & Physical and in the interval since the performance of the History & Physical I have noted the following changes of clinical significance: Patient reports abdominal "soreness" and feels the urge to defecate but is unable to pass a BM. Still with nausea but no vomiting. NPO. PE:A&Ox3. Lungs CTA bilaterally. RRR. Abdomen obese, soft. Normal bowel sounds. +tenderness. Extremities normal to inspection. A/P: Patient is a 63 y.o. female with a history of constipation admitted with intractable nausea with vomiting and epigastric pain. -NPO. -Proceed with EGD today by Dr. Elise. -Continue Pantoprazole 40 mg BID. -Further recommendations pending results of testing. Supervising Physician Co-Signing Physician Notes Agree with SHRUTHI Salgado as above Abd: Soft, tender mid-epigastric area, ND, +BS Continue current therapy and supportive care Proceed with EGD today
[2023-02-11] MEDS ORDERED: MIDAZOLAM HCL 1 MG/ML 2ML VIAL ONE (10:56)
[2023-02-11] MEDS ORDERED: LIDOCAINE 2% 2 ML VIAL/AMP(20MG/ML) INFIL ONE (10:56)
[2023-02-11] MEDS ORDERED: PROPOFOL IV EMULSION 10 MG/ML 20 ML VIAL IV ONE (10:57)
[2023-02-11] MEDS ORDERED: ONDANSETRON INJ 2 MG/ML 2 ML VIAL ONE (10:57)
--- NOTE | 2023-02-11 11:10 | Anesthesiology Consultation ---
Date of Service February 11, 2023 Assessment & Plan Chart Review Chart Review: Acceptable Risk for Surgery and Patient NOT seen in Pre Admission Testing Consults Requested none ASA ASA3 Proposed Anesthesia Anesthesia Type: MAC Risk / Benefits Reviewed With: PT / POA / Parent / Guardian, Accepts Plan and Informed Consent Obtained History Surgery Operation Date: 02/11/23 17:00 Proposed Procedures p Esophagogastroduodenoscopy Dr Arik Allen Case, DO Height/Weight Height: 5 ft 9 in Weight: 108.6 kg Allergies Allergy/AdvReac Type Severity Reaction Status Date / Time phentermine AdvReac Elevated Verified 02/10/23 00:00 blood pressure Medications Home Medications Medication Instructions Recorded Confirmed Last Taken CPAP Machine #1 ea 06/08/22 01/25/23 Unknown lisinopril 10 mg tablet 10 mg PO DAILY #90 tabs 08/11/22 02/09/23 Unknown CPAP Supplies #4 ea 10/20/22 01/25/23 Unknown pediatric multivitamin no.209 1 tab PO DAILY 11/15/22 02/09/23 Unknown (Children's Multivitamin Gummy chewable tablet) cyclosporine 0.05 % eye drops in a 1 drp ophthalmic (eye) Q12H 01/25/23 02/09/23 Unknown dropperette (Restasis) metformin 500 mg tablet 500 mg PO BID 01/25/23 02/09/23 Unknown ondansetron HCl 8 mg tablet 8 mg PO Q8H PRN nausea and 01/25/23 02/09/23 Unknown vomiting #30 tabs nystatin 100,000 unit/mL oral 1 ml PO DAILY #60 mL 01/27/23 02/09/23 Unknown suspension Active Medications Generic Name Dose Route Start Last Admin Trade Name Freq PRN Reason Stop Dose Admin Famotidine 20 mg 02/10/23 09:00 02/11/23 08:08 Famotidine 20 Mg Tab PO 03/12/23 08:59 20 mg QAM CAPRI Administration Acetaminophen 1,000 mg in 100 mls @ 400 mls/hr 02/10/23 04:13 02/11/23 00:51 Ofirmev IV 02/13/23 04:12 Infused Q8H PRN Infusion Pain or fever Sodium Chloride 1,000 mls @ 100 mls/hr 02/10/23 12:15 02/11/23 08:10 Nss 1000ml IV 03/12/23 12:14 100 mls/hr .Q10H CAPRI Administration Lisinopril 10 mg 02/10/23 09:00 02/11/23 08:08 Lisinopril 10 Mg Tab PO 03/12/23 08:59 10 mg DAILY CAPRI Administration Ondansetron HCl 4 mg 02/10/23 04:13 02/11/23 03:53 Ondansetron Inj 2 Mg/Ml 2 Ml Vial IV 03/12/23 04:12 4 mg Q6H PRN Administration Nausea And Vomiting NPO Date Last Intake of Fluids: 02/11/23 Time Last Intake of Fluids: 06:00 Date Last Intake of Solids: 02/08/23 Time Last Intake of Solids: 18:00 Past Medical History Medical History Anxiety Chronic diarrhea COVID-19 home test on 09/18/21 positive; c/o cough, dizziness, congestion, joint pain Dizziness Eustachian tube dysfunction Fecal retention GERD (gastroesophageal reflux disease) HX OF/RE-OCCURS/NOT A CURRENT PROBLEM Head and face pain History of kidney stones HTN (hypertension) Hydronephrosis Hydroureter Impacted cerumen, right ear Kidney stone SMALL STONE CURRENLTY/CAUSING NO PROBLEMS Migraines Otalgia, right ear Positional vertigo Sensation of chest pressure Serous otitis media of right ear with rupture of tympanic membrane Exercise / Class Metabolic Activity II 4-5 Yardwork/Stairs/Walk up hill Past Family History Family History Son Family history of reaction to anesthesia makes oldest son "goofy" Aunt Family history of colon cancer Father Asthma Other Cancer Diabetes Patient's father is Peritonitis Thyroid disorder Past Surgical History Surgical History History of bilateral tubal ligation History of cataract surgery December 2022 History of cholecystectomy History of colonoscopy History of cystoscopy History of endoscopic sinus surgery & Right Myringotomy and Tube placement - 09/11/[address] Galloway History of esophagogastroduodenoscopy (EGD) History of fusion of cervical spine normal ROM History of lumbar spinal fusion x2 History of placement of ear tubes Right Myringotomy and tube - 09/11/[address] Galloway Repeated by Dr. Galloway on 10/29/21 History of rhinoplasty History of tonsillectomy History of tooth extraction History of urologic surgery FOR KIDNEY STONES, STENT History of wisdom tooth extraction Status post correction of deviated nasal septum x2 Past Anesthesia History No Hx of Anesthesia Complications and No Family Hx of Anesthesia Complications History of PONV No Hx of PONV and No Hx of Motion Sickness Social History Smoking Status: Never smoker Do You Dip or Chew Tobacco: No Hx Alcohol Use: No Alcohol type: wine alcohol intake frequency: holidays/special occasions only Hx Substance Use: No substance use type: does not use Physical Exam Vital Signs Last Vital Signs Temp 36.4 C L 02/11/23 10:41 Pulse 71 02/11/23 10:41 Resp 16 02/11/23 10:41 BP 153/97 H 02/11/23 10:41 Pulse Ox 97 02/11/23 10:41 O2 Del Method Room Air 02/11/23 10:41 Constitutional + obese; no acute distress ENMT Mouth: no dentition abnormality Thyromental Distance: < 3.5 Finger Breadths Mallampati Class: II Neck normal visual inspection and trachea midline; neck extension not limited Respiratory normal respiratory effort Auscultation: lungs clear to auscultation bilaterally Cardiovascular Rate/Rhythm: regular rate and regular rhythm Heart Sounds: no murmur Vessels: no carotid bruit Musculoskeletal Spine: normal cervical ROM and no pain with cervical ROM Extremities: full ROM of extremities Neurologic moves all extremities Motor/Sensory: no sensory deficit Psychiatric Orientation: alert and oriented x 3 Testing Laboratory Results 02/11/23 07:25 02/11/23 07:25 Urine Color Dark Yellow 02/09/23 20:03 Urine Appearance Clear (Clear) 02/09/23 20:03 Urine pH 6.5 (4.5-7.5) 02/09/23 20:03 Ur Specific Russell 1.029 (1.000-1.030) 02/09/23 20:03 Urine Protein Trace (Negative) H 02/09/23 20:03 Urine Glucose (UA) Negative (Negative) 02/09/23 20:03 Urine Ketones 1+ (Negative) H 02/09/23 20:03 Urine Nitrite Negative (Negative) 02/09/23 20:03 Ur Leukocyte Esterase Negative (Negative) 02/09/23 20:03 Urine WBC (Auto) 1-5 /hpf (0-5) 02/09/23 20:03 Urine RBC (Auto) 0-4 /hpf (0-4) 02/09/23 20:03 U Hyaline Cast (Auto) 1-5 /lpf (0-5) 02/09/23 20:03 U Epithel Cells (Auto) 20-30 /lpf (0-5) H 02/09/23 20:03 Urine Bacteria (Auto) Negative (Negative) 02/09/23 20:03 Electrocardiogram Date: 02/10/23 Findings: + NSR @ (@ 65) Echocardiogram Date: 03/05/22 EF: 60% LV Function: normal RWMA: no none Valvular Disease: + no significant valvular disease
[2023-02-11] MEDS ORDERED: ePHEDrine sulfate 50 MG/ML AMP IV PRN (11:13)
[2023-02-11] MEDS ORDERED: ATROPINE SULFATE 0.1 MG/ML 10ML SYR IV PRN (11:13)
--- NOTE | 2023-02-11 11:46 | GI REPORT ---
Patient Name: Simin Link Procedure Date: 02/11/2023 11:25 AM Date of : 1960 Admit Type: Inpatient Age: 63 Gender: Female Attending MD: Nirav Elise DO, Procedure: Upper GI endoscopy Providers: Nirav Elise DO Referring MD: Apurva Barker Indications: Epigastric abdominal pain Medicines: Monitored Anesthesia Care Complications: No immediate complications. Estimated Blood Loss: Estimated blood loss: none. Procedure: Pre-Anesthesia Assessment: - Prior to the procedure, a History and Physical was performed, and patient medications and allergies were reviewed. The patient's tolerance of previous anesthesia was also reviewed. The risks and benefits of the procedure and the sedation options and risks were discussed with the patient. All questions were answered, and informed consent was obtained. Prior Anticoagulants: The patient has taken no anticoagulant or antiplatelet agents. ASA Grade Assessment: III - A patient with severe systemic disease. After reviewing the risks and benefits, the patient was deemed in satisfactory condition to undergo the procedure. After obtaining informed consent, the endoscope was passed under direct vision. Throughout the procedure, the patient's blood pressure, pulse, and oxygen saturations were monitored continuously. The Scope was introduced through the mouth, and advanced to the second part of duodenum. The upper GI endoscopy was accomplished without difficulty. The patient tolerated the procedure well. Findings: The esophagus was normal. Three non-bleeding cratered gastric ulcers with no stigmata of bleeding were found in the gastric antrum. The largest lesion was 20 mm in largest dimension. Biopsies were taken with a cold forceps for histology. The examined duodenum was normal. Impression: - Normal esophagus. - Non-bleeding gastric ulcers with no stigmata of bleeding. Biopsied. - Normal examined duodenum. Recommendation: - [facility]. - Advance diet as tolerated. - Use Protonix (pantoprazole) 40 mg PO BID. - Avoid all NSAID's, use Tylenol for pain control - Await pathology results. Nirav Elise DO 02/11/2023 11:46:06 AM This report has been signed electronically. Note Initiated On: 02/11/2023 11:25 AM Number of Addenda: 0 I attest to the content of the Intraoperative Record and orders documented therein, exceptions below {[id number]}
[2023-02-11] MEDS ORDERED: PANTOprazole 40 MG TAB PO SCH (12:00)
--- NOTE | 2023-02-11 12:00 | Anesthesiology Progress Note ---
Date of Service February 11, 2023 Anesthesia Post Procedure Vital Signs Vital Signs: Temp Pulse Pulse Pulse Resp BP BP 02/11/23 11:45 74 16 144/90 H 02/11/23 08:25 02/11/23 10:41 36.4 C L 71 16 153/97 H 02/11/23 06:01 64 02/11/23 07:31 36.4 C L 64 18 136/84 02/11/23 04:05 36.7 C 63 18 159/90 H 02/11/23 00:55 70 02/10/23 23:07 37.3 C 65 16 162/96 H 02/10/23 19:24 36.7 C 63 16 165/85 H 02/10/23 16:00 67 02/10/23 14:28 36.2 C L 65 18 143/86 H 02/10/23 12:23 66 Pulse Ox O2 Del Method 02/11/23 11:45 95 Room Air 02/11/23 08:25 Room Air 02/11/23 10:41 97 Room Air 02/11/23 06:01 02/11/23 07:31 94 Room Air 02/11/23 04:05 95 Room Air 02/11/23 00:55 02/10/23 23:07 95 Room Air 02/10/23 19:24 95 Room Air 02/10/23 16:00 02/10/23 14:28 99 Room Air 02/10/23 12:23 Pain Intensity Abdomen: Pain Intensity: 6 Transfer of Care Handoff Completed per policy Notes Mental Status: alert / awake / arousable Patient Amnestic to Procedure: Yes Nausea / Vomiting: adequately controlled Pain: adequately controlled Airway Patency, RR, SpO2: stable & adequate BP & HR: stable & adequate Hydration State: stable & adequate Anesthetic Complications: no major complications apparent
[2023-02-11] MEDS ORDERED: SUCRALFATE 1 GM TAB PO SCH (13:05)
--- NOTE | 2023-02-11 13:05 | Discharge Summary ---
Date of Service February 11, 2023 Admission HPI Per Admitting Provider Simin is a 63 year old female w/ PmHx eustachian tube dysfunction, GERD, hx of kidney stones, HTN, migraines, chronic diarrhea coming into the ED for nausea, vomiting, dizziness. Patient states that over the past 4 to 5 weeks she has had episodes of nausea vomiting and dizziness that are more prominent in the morning and by the time that she gets hungry. She states that this worsened over the day today as she has had 15 episodes of emesis over the past day. She says the emesis is bile-jairo color and nature being green and sometimes yellow. She is also had some associated abdominal pain at the upper quadrants. She has had some loose bowel movements however she is struggled with on and off diarrhea alternating between diarrhea and constipation for quite some time now. She says that she is try to take Zofran at home however that did not affect her nausea or vomiting. Patient is unable to keep anything down food or drink. She denies fevers, chills, shortness of breath, changes in vision or hearing, urinary symptoms. In the ED her WBC 11.12, CBC otherwise unremarkable, CMP unremarkable, lipase negative. CT head without any acute abnormalities, CT abdomen pelvis with diverticulosis without diverticulitis, no small bowel obstruction, no free intraperitoneal air, cholecystectomy. Patient was given 4 mg of ondansetron, 25 mg diphenhydramine, 5 mg metoclopramide, 2.5 mg promethazine. Admission Exam Per Admitting Provider Constitutional: WD/WN, vitals as above Eyes: PERRL, conjunctivae normal, anicteric sclerae Respiratory: normal respiratory effort, lungs clear to auscultation Cardiovascular: RRR, no murmur, no edema Gastrointestinal (Abdomen): Bowel sounds positive, soft, nondistended, tender to palpation at the upper abdominal region. Psychiatric: A+Ox3, euthymic affect Principal Diagnosis Gastritis, nonbleeding gastric ulcers Discharge Exam General: WD/WN female sitting up in bed, on the phone, NAD HEENT: head normocephalic, atraumatic, mmm, trachea midline Resp: CTA, no w/c/r, on room air CV: RRR, no significant m/r/g, no pitting edema or calf tenderness GI: +BS, soft, no rebound/guarding : no irving MSK/Neuro: no focal deficits, no slurred speech/facial droop following commands Psych: AOx3, pleasant and cooperative Discharge Data Allergies Allergy/AdvReac Type Severity Reaction Status Date / Time phentermine AdvReac Elevated Verified 02/10/23 00:00 blood pressure Consultations 02/10/23 04:13 Consult Gastroenterology Routine Procedures Performed Operation Date: 02/11/23 17:00 Actual Procedures p EGD Biopsy Cytology - Nirav Allen Case, DO Ordered Studies Abdomen/Pelvis CT 02/09/23 17:42 Exam(s): CT ABDOMEN + PELVIS With Contrast IV Amt: 87ml optiray 320 EXAM: CT Abdomen and Pelvis With Intravenous Contrast CLINICAL HISTORY: Reason for exam: Upper and/back pain, vomiting. TECHNIQUE: Axial computed tomography images of the abdomen and pelvis with intravenous contrast. CTDI is 20.76 mGy and DLP is 1029.83 mGy-cm. Automated exposure control was utilized for the study. A dose lowering technique was utilized adhering to the principles of ALARA. CONTRAST: Patient received 87ml optiray 320 of IV contrast COMPARISON: No relevant prior studies available. FINDINGS: Lung bases: Unremarkable. No mass. No consolidation. ABDOMEN: Liver: Hepatic steatosis. Gallbladder and bile ducts: Cholecystectomy. No ductal dilation. Pancreas: Unremarkable. No mass. No ductal dilation. Spleen: Unremarkable. No splenomegaly. Adrenals: Unremarkable. No mass. Kidneys and ureters: Unremarkable. No hydronephrosis or delayed nephrogram. Stomach and bowel: Diverticulosis, without acute diverticulitis. No small bowel obstruction. No free intraperitoneal air. PELVIS: Appendix: No secondary signs of acute appendicitis. Bladder: Decompressed urinary bladder. Reproductive: Unremarkable as visualized. ABDOMEN and PELVIS: Intraperitoneal space: Unremarkable. No free air. No significant fluid collection. Bones/joints: Degenerative changes of the spine. Posterior fusion L4- L5 with L5 and L5 laminectomies. No acute fracture. No dislocation. Soft tissues: Unremarkable. Vasculature: Unremarkable. No abdominal aortic aneurysm. Lymph nodes: Unremarkable. No enlarged lymph nodes. IMPRESSION: 1. Diverticulosis, without acute diverticulitis. No small bowel obstruction. No free intraperitoneal air. 2. Hepatic steatosis. 3. Cholecystectomy. Electronically signed by: Niall Russo MD 02/09/23 20:[address] 02/09/23 21:02 Exam(s): CT HEAD Without Contrast EXAM: CT Head Without Intravenous Contrast CLINICAL HISTORY: Reason for exam: Headaches, vomiting. TECHNIQUE: Axial computed tomography images of the head/brain without intravenous contrast. CTDI is 35.07 mGy and DLP is 537.48 mGy-cm. Automated exposure control was utilized for the study. A dose lowering technique was utilized adhering to the principles of ALARA. COMPARISON: No relevant prior studies available. FINDINGS: No acute intracranial hemorrhage. No midline shift or mass effect. The territorial link-white matter differentiation is maintained throughout. Age-related cerebral volume loss. Periventricular and subcortical white matter hypoattenuation, consistent with chronic microangiopathy. The visualized orbits appear grossly unremarkable. The calvarium is intact. The visualized paranasal sinuses and mastoid air cells are grossly clear. IMPRESSION: No acute intracranial hemorrhage, midline shift, or mass effect. Electronically signed by: Niall Russo MD 02/09/23 21:54 PM Brain MRI 02/10/23 04:13 MRI OF THE BRAIN WITHOUT IV CONTRAST CLINICAL HISTORY: Dizziness. Headache. COMPARISON STUDY: CT of the brain dated 02/09/2023. TECHNIQUE: MRI of the brain was performed utilizing various T1 and T2-weighted sequences in the axial, sagittal, and coronal planes. IV contrast was not administered for this examination. FINDINGS: Brain parenchyma: There is minimal microangiopathic change. There is no hemorrhage or mass effect. There is no restricted diffusion to suggest acute ischemia. Link-white matter differentiation is preserved. No extra-axial fluid collection is seen. The cerebellar tonsils are normal in configuration. Ventricles, sulci, and cisterns: Normal in configuration. Pituitary and sella: Unremarkable. Intracranial vasculature: Normal flow voids are maintained at the skull base. Orbits: The bony orbits are grossly intact. Orbital contents are normal in appearance. Sinuses and mastoids: Clear. Calvarium: Unremarkable. Cervical cord: Partially visualized cervical spinal cord is normal in morphology and signal intensity. IMPRESSION: No acute intracranial abnormality. ACT 112: Negative or not required by law. Electronically signed by: Yordan Gordon M.D. 02/10/2023 8:05 AM Chest/Abdomen X-ray 02/10/23 09:50 CHEST AND ABDOMEN 2 VIEWS HISTORY: hx of severe constipation, intract n/v, epi pain COMPARISON: [facility] 01/17/2023. Abdomen and pelvis CT 02/09/2023. FINDINGS: No pneumothorax. No pleural effusions. The lungs are clear. The heart is normal in size. Cervical spinal fusion hardware and old, healed left-sided rib fractures are noted. No pneumoperitoneum. No pneumatosis. Prior cholecystectomy. Lower lumbar spinal fusion hardware is again noted. No renal or ureteral calculi. No dilated loops of bowel to suggest an obstruction. IMPRESSION: No acute cardiopulmonary process. No evidence for bowel obstruction. ACT 112: Negative or not required by law. Electronically signed by: Sadiq Alva M.D. 02/10/2023 11:25 AM Hospital Course (1) Intractable nausea and vomitin-year-old female with past medical history eustachian tube dysfunction, GERD, hx of kidney stones, HTN, migraines, chronic diarrhea admitted for intractable nausea and vomiting. WBC elevated on admit . Procal negative -- suspected reactive from n/v. No fevers. UA negative Patient previously reported on protonix in the past. No heavy alcohol or NSAID use Provided supportive care w/ IVF/electrolyte replacement/antiemetics as needed. No further vomiting since 1am on 02/10 GI consulted S/p EGD w/ non-bleeding gastric ulcers with no stigmata of bleeding. Pathology pending Advanced and tolerated regular diet without increased nausea or vomiting and wanting to go home. Planned protonix BID x 6weeks then daily. Discussed w/ Dr Case and will plan carafate 1gm PO QID x 10 days as well as the protonix BID Discussed with patient to AVOID NSAIDS. Outpt f/u in GI office 6 weeks, f/u pathology (2) Dizziness: MRI brain completed as ordered outpatient for eval --> NEGATIVE No further symptoms since PPI/treatment as above (3) Sleep apnea: CPAP HS (4) HTN (hypertension): BPs stable,continued lisinopril Plan discharged home on protonix 40mg BID x 6 weeks then will need rx for daily Carafate 1gm QID x 10 days outpatient f/u GI Total Time Total Time Spent Total Time Spent (In Minutes): 45 Discharge Plan Discharge Items Patient Disposition: Home - Self-Care Reason For Visit: NAUSEA, VOMITING Discharge Diagnosis: Gastritis, nonbleeding gastric ulcer, intractable nausea/vomiting Goals: You have been hospitalized for an urgent problem which required surgery. During your stay at [facility], we have made an effort to correct the problem that brought you to the hospital while keeping you as comfortable as possible. Surgery and medications were used to bring your condition under control and your discharge instructions will include directions for any medications you should take after leaving the hospital. Please make sure to follow the advice of your surgeon regarding follow up with the surgeon and with your primary care provider. Activity: As commented below Non-emergency contact: Primary Care Provider and Dispatcher [place] Call non-emergency contact if: you have any medication questions, your symptoms worsen, your pain is not controlled and you have a fever Follow-up/Referrals: Nirav Elise DO [Physician] - 03/28/23 1:20 pm (6 weeks) Apurva Draper MD [Primary Care Provider] - 02/14/23 11:30 am Diet: Heart Healthy Addtl Attending Provider Instructions: You have been hospitalized for intractable nausea and vomiting. GI was consulted and you were made nothing by mouth for EGD which showed a nonbleeding gastric ulcer without any active bleeding. Discussion was had with Dr Elise, and recommendations for protonix 40mg TWICE daily for SIX weeks and then daily after. You will also be sent carafate 1gm four times daily before meals to help with the lining of the stomach. NO NSAIDS as discussed -- this includes Aleve, Ibuprofen, Motrin, etc. You can you tylenol for pain. You should limit soda/chocolate/caffeine which can worsen reflux symptoms. You will need outpatient follow up with Dr Elise's office in 6 weeks to review pathology. Please follow up with primary care in the next 7-10 days to monitor your status after hospitalization. It has been a pleasure being a part of the medical team providing for you while you have been in the hospital. Take care! Pending Studies at Discharge: Yes Studies:: Pathology from EGD Stand-Alone Forms: My [facility] [employer], Smoking Cessation Medications and DC Order Prescriptions: New pantoprazole 40 mg Tablet,Delayed Release (Dr/Ec) 40 mg PO BID 42 Days Qty: 84 0RF sucralfate 1 gram tablet 1 g PO QID 10 Days Qty: 40 0RF Continued (DME) CPAP Machine Misc See Rx Instructions .Route Qty: 1 0RF Rx Instructions: nightly lisinopril 10 mg tablet 10 mg PO DAILY Qty: 90 3RF (DME) CPAP Supplies Misc See Rx Instructions .Route Qty: 4 11RF Rx Instructions: See notes to pharmacy nystatin 100,000 unit/mL suspension 1 ml PO DAILY Qty: 60 0RF Rx Instructions: swish and swallow Children's Multivitamin Gummy Tablet,Chewable 1 tab PO DAILY cyclosporine [Restasis] 0.05 % dropperette 1 drp ophthalmic (eye) Q12H metformin 500 mg tablet 500 mg PO BID ondansetron HCl 8 mg tablet 8 mg PO Q8H PRN (Reason: nausea and vomiting) Qty: 30 0RF Discharge Orders: Discharge Order (Routine); Ordered 02/11/23 Ordered By: Maggie Canseco Admission Data Admit Date/Time: 02/10/23 01:14 Attending Provider: Jhonatan Velarde Admit Provider: Jeremy Robertson Primary Care Provider: Apurva Draper V. Other Providers: Nirav Elise Supervising Physician Co-Signing Physician Notes The patient was seen by me. The chart was reviewed. Case discussed with BEKA Parada. Agree with assessment and plan. She will be discharged home today, February 11 Coding Level of Care Code 44723 INP/OBS DISCH >30 MIN Diagnoses Intractable nausea and vomiting R11.2 Dizziness R42 Sleep apnea G47.30 HTN (hypertension) I10
== END 2023-02-11 16:56 | disposition home or self-care (01) ==
LOC: EDINP 17:31 → ED 17:31 → SUATTDRO 02-10 01:14 → 2N 02-10 04:08